=== PATIENT | male | born 1970 | race Caucasian/White ===

== ENCOUNTER 2021-09-13 06:31 | Outpatient (REF) | payer BC, SELFPAY ==
[2021-09-13 12:08] LABS: Alanine Aminotransferase 38 U/L (0-40); Albumin Level 4.2 g/dL (3.5-5.0); Alkaline Phosphatase 62 U/L (39-117); Anion Gap 12 (12-20); Aspartate Amino Transferase 20 U/L (5-37); Bilirubin Total 0.6 mg/dL (0.0-1.0); Blood Urea Nitrogen 19 mg/dL (9-16); Calcium 9.4 mg/dL (8.4-10.2); Carbon Dioxide 27 mmol/L (22-29); Chloride 105 mmol/L (96-108); Cholesterol 196 mg/dL; Estimated Glomerular Filt Rate > 60; Glucose Fasting 96 mg/dL (60-99); HDL Cholesterol 33 mg/dL; LDL Cholesterol Calculated 112 mg/dl; Potassium 4.1 mmol/L (3.3-5.1); Sodium 140 mmol/L (135-145); Total Protein 6.8 g/dL (6.5-8.0); Triglycerides 256 mg/dL
[2021-09-13 12:28] LABS: TSH reflex Free T4 1.43 uIU/mL (0.32-4.0)
== END 2021-09-13 06:32 | disposition home or self-care (01) ==
LOC: HO.HMGCLDS 06:31
PROVIDERS: PCP Family Medicine; Visit Provider Family Medicine
DX: Z00.00 Encounter for general adult medical examination without abnormal findings (principal); Z12.5 Encounter for screening for malignant neoplasm of prostate
CPT/HCPCS: 36415; 80053; 80061; 84153; 84443

== ENCOUNTER 2021-10-19 11:51 | Outpatient (REF) | payer BC, SELFPAY | END 2021-10-19 11:52 | disposition home or self-care (01) | LOC: HO.HOSX 11:51 | PROVIDERS: Visit Provider Orthopaedic Surgery | DX: Z13.89 Encounter for screening for other disorder (principal) ==

== ENCOUNTER → 2021-12-01 09:03 | Outpatient (BNVA) | payer BC, SELFPAY | PROVIDERS: PCP Family Medicine; Referring Provider Family Medicine; Visit Provider Physician Assistant ==

== ENCOUNTER 2022-03-09 08:00 | Day surgery (SDC) | payer BC, SELFPAY ==
[2022-03-03 13:43] VITALS: BMI 34.8
--- NOTE | 2022-03-08 12:02 | P.CONAN_ITS ---
Documented by User: Marquita Tyler NP 03/08/22 12:04 HPI - Anesthesia Eval Consult details Narrative: 51yo M for Upper Endoscopy and Colonoscopy PMFSH Active Problems Active Problems: All Active Problems (Updated 03/03/22 @ 13:36 by Saranya Tanner, RN) Laboratory exam ordered as part of routine general medical examination (Acute) Encounter for screening colonoscopy (Acute) Screening for prostate cancer (Acute) Right hand pain (Acute) Hypertriglyceridemia (Acute) Low HDL (under 40) (Acute) Adult general medical exam (Acute) Obesity (BMI 30.0-34.9) (Acute) Difficulty hearing (Acute) Heartburn (Acute) Diarrhea (Acute) Past Medical History Medical History (Updated 03/03/22 @ 13:36 by Saranya Tanner, RN) Hearing difficulty Heartburn Hypertriglyceridemia Family History Family History Mother HTN (hypertension) Surgical History Surgical History History of appendectomy Social History Social History Housing: House Alcohol intake: current Alcohol intake frequency: a few times a month Patient Tobacco Use Status: Never used Tobacco e-Cigarette/Vaping Use: Never Used Second Hand Smoke Exposure: No Use of substances other than those prescribed or required for medical reasons: No Are you DNR?: No Advance Directives: No Advance Directives Information Provided: Yes Recently lost weight without trying: No Nutrition Risks: No Nutritional Risk service: No Current occupational status: employed 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 Cognitive needs: No Hearing needs: No Vision needs: Yes (reading glasses) Meds Allergies Allergy/AdvReac Type Severity Reaction Status Date / Time No Known Allergies Allergy Verified 12/01/21 09:10 Exam Exam Date and Time: March 08, 2022 1202 Height,Weight and Vital Signs: Height 6 ft Weight 116.573 kg Assessment and Plan Assessment Anesthesia Assessment: Chart Reviewed Documented by User: Annamarie Mckenzie MD 03/09/22 08:27 [facility] Past Medical History Medical History (Updated 03/03/22 @ 13:36 by Saranya Tanner RN) Hearing difficulty Heartburn Hypertriglyceridemia Family History Family History Mother HTN (hypertension) Family history of problems with anesthesia: No Surgical History Surgical History History of appendectomy History of Problems with Anesthesia: No Social History Social History Housing: House Alcohol intake: current Alcohol intake frequency: a few times a month Patient Tobacco Use Status: Never used Tobacco e-Cigarette/Vaping Use: Never Used Second Hand Smoke Exposure: No Use of substances other than those prescribed or required for medical reasons: No Are you DNR?: No Advance Directives: No Advance Directives Information Provided: Yes Recently lost weight without trying: No Nutrition Risks: No Nutritional Risk service: No Current occupational status: employed 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 Cognitive needs: No Hearing needs: No Vision needs: Yes (reading glasses) Meds Allergies Allergy/AdvReac Type Severity Reaction Status Date / Time No Known Allergies Allergy Verified 12/01/21 09:10 Exam Height,Weight and Vital Signs: Height 6 ft Weight 116.573 kg Vital Signs Temp Pulse Resp BP Pulse Ox O2 Del Method 03/09/22 08:11 97.1 F 64 16 132/88 94 Room Air Airway Mallampati Class: III TM Dist: >3cm Neck ROM: Full Loose/Missing/Broken Teeth: No Heart: RRR Lungs: CTAB Assessment and Plan Assessment Anesthesia Assessment: Anesthesia Plan Discussed Final Anesthetic Review Family History of Problems with Anesthesia: No History of Problems with Anesthesia: No NPO: Yes ASA Class: II Final Preanesthetic Review: No Changes in Pt Med Stat, Meds/Allgs Chart Reviewed, Consent Obtained/Reviewed and Anes Risks/Benef Reviewed Patient Risk: Low Procedure Risk: Low Assessment/Block/Sedation in SS: Assess/Block/Sedation-SS Anesthetic Plan Anesthetic Plan: MAC: Disposition: Standard PACU
[2022-03-09 08:05] VITALS: BMI 33.9
[2022-03-09 08:11] VITALS: BP 132/88; PULSE 64; RESP 16; TEMP 36.2; O2SAT 94
[2022-03-09] MEDS: Lactated Ringers 1,000 ML 100 ML IVCONT (08:23)
--- NOTE | 2022-03-09 08:35 | MHC.SHP ---
Pre-Procedural Eval Section A Date of Service: 03/09/22 Section B Chief Complaint: screening,heartburn Relevant Family History (Specify if Yes): No Relevant Social History: None Present Medications: see Short Stay Collaborative assessment Medical History: Significant History (Hearing difficulty Heartburn Hypertriglyceridemia) History of Previous Operations: Relevant previous surgery/procedure and date(s) (appendectomy) Allergies: Allergies Allergy/AdvReac Type Severity Reaction Status Date / Time No Known Allergies Allergy Verified 12/01/21 09:10 Review of Systems Sugical H&P ROS: Negative: Constitution, Cardiovascular, Respiratory, Neurological, Psychiatric, Hem-Onc, Allergic/Immunologic, Gastrointestinal, Genitourinary, Musculoskeletal, Integumentary, Endocrine and Eyes/Ears/Nose/Throat Exam Surgical H&P Exam: Normal: HEENT, Normal: Heart, Normal: Lungs, Normal: Extremities, Normal: Abdomen, Normal: Skin and Normal: Neurological Plan Diagnosis/Plan: Unchanged I have reviewed the history and physical and performed a pertinent physical examination on my patient. No changes have occurred unless specified.
--- NOTE | 2022-03-09 08:37 | P.BOP_ITS ---
Brief Operative Note Date of Service: 03/09/22 Pre-op diagnosis: GERD< screening Post-op diagnosis: same Procedure: see op note Surgeon: Junior Hair MD Anesthesia: MAC Was an Oil Processing Technician used for this Procedure?: No Estimated blood loss (mL): 0 Condition: stable Disposition: PACU
--- NOTE | 2022-03-09 08:37 | P.OP_ITS ---
Operative Note Operative Note Date of Service: 03/09/22 Narrative: Operative Information Procedure Description: EGD, Colonoscopy Indication: GERD, screening Anesthesia: MAC FLEXIBLE TRANSORAL UPPER GASTROINTESTINAL ENDOSCOPY AND COLONOSCOPY PROCEDURE NOTE UPPER ENDOSCOPY Consent: Indications for the procedure and potential complications of bleeding, perforation, reaction to medications and missed diagnosis were discussed with the patient and informed consent was obtained. Instrument: Olympus GIF H 190 J mid size upper endoscope Monitoring: Vital signs and clinical assessment, continuous EKG monitoring, Pulse oximetry, Carbon Dioxide monitoring and blood pressure monitoring were done throughout the procedure. Procedure: The patient was placed in the left lateral decubitis position and pre-procedure medications were administered and a bite block was placed. The endoscope was inserted into the mouth and advanced under direct vision to the third part of duodenum. A careful inspection was made as the upper endoscope was withdrawn including a retroflexed examination of the proximal stomach; Findings and interventions are described below. Findings: Larynx:normal Esophagus: GE junction at 43 cm, diaphragm hiatus at 45 cm, consistent with 2 cm sliding hiatal hernia, edema, swelling and redness at GEJ with one erosive streak consistent with LA grade B esophagitis, bx taken Stomach: PAtchy erythema with bile acid refluxate noted. Biopsies were obtained. Grade 2 flap valve on retroflexed examination of the cardia. Duodenum: Normal bulb and descending duodenum, bx taken Intervention: Biopsies as noted above COLONOSCOPY Instrument: Olympus variable stiffness pediatric scope 190L Colonoscopy Monitoring: Vital signs and clinical assessment, continuous EKG monitoring, Pulse oximetry, Carbon Dioxide monitoring and blood pressure monitoring were done throughout the procedure. Colon withdrawal time was 12 minutes. Procedure: The patient was placed in the left lateral decubitis position and pre-procedure medications were administered. After a digital rectal examination of the ano-rectum, the video colonoscope was inserted into the rectum and advanced through the colon to the cecum/TI. The colonoscope was slowly withdrawn in a retrograde panoramic fashion and the colon mucosa was carefully examined including a retroflexed view of the rectum. Findings and interventions are described below. Procedure Difficulty:moderate due to looping Findings: Terminal Ileum-few erosions and erythema noted, bx taken Cecum:normal, bx taken Ascending Colon: 10 mm sessile polyp removed with cold snare Transverse Colon -normal Descending Colon:normal Sigmoid Colon: moderate severe diverticulosis Rectum: Retroflexion with small internal hemorrhoids, grade I Anorectum - normal Colon preparation: Maurice Bowel Preparation Scale Right colon; 2 Transverse colon: 2 Left colon; 2 (0 = Unprepared colon segment with mucosa not seen due to solid stool that cannot be cleared. 1 = Portion of mucosa of the colon segment seen, but other areas of the colon segment not well seen due to staining, residual stool and/or opaque liquid. 2 = Minor amount of residual staining, small fragments of stool and/or opaque liquid, but mucosa of colon segment seen well. 3 = Entire mucosa of colon segment seen well with no residual staining, small fragments of stool or opaque liquid) Impression and Post Procedure Diagnosis: Endoscopy Findings: esophagitis gastritis bile acid gastric reflux Colonoscopy Findings: polyp internal hemorrhoids diverticular disease Plan: Await Pathology results Repeat Colonoscopy in 5 years due to adenomatous appearing polyp or earlier if clinically indicated High fiber diet leaflet avoid straining at stool, epsom salts and sitz bath, anusol supps or cream check nsaid use history, if GERD sx suboptimally controlled, consider PPI if not taking may benefit from bile acid binder if has persistent sx of reflux Above findings were reviewed with the patient and relevant handouts were provided if indicated.
[2022-03-09 09:16] VITALS: BP 126/82; PULSE 76; RESP 16; TEMP 36.3; O2SAT 96
[2022-03-09 09:21] VITALS: BP 121/83; PULSE 73; RESP 16; O2SAT 95
[2022-03-09 09:31] VITALS: BP 124/87; PULSE 74; RESP 16; TEMP 36.6; O2SAT 97
[2022-03-09 09:46] VITALS: BP 130/85; PULSE 65; RESP 16; O2SAT 97
== END 2022-03-09 10:30 | disposition home or self-care (01) ==
PROVIDERS: PCP Family Medicine; Visit Provider Internal Medicine Gastroenterology
PROC: (CPT 45385; principal; 2022-03-09 09:20)
DX: Z12.11 Encounter for screening for malignant neoplasm of colon (principal); D12.0 Benign neoplasm of cecum; K57.30 Diverticulosis of large intestine without perforation or abscess without bleeding; K64.0 First degree hemorrhoids; K52.89 Other specified noninfective gastroenteritis and colitis; K21.9 Gastro-esophageal reflux disease without esophagitis; K20.80 Other esophagitis without bleeding; K29.50 Unspecified chronic gastritis without bleeding; K44.9 Diaphragmatic hernia without obstruction or gangrene; H91.90 Unspecified hearing loss, unspecified ear; E78.1 Pure hyperglyceridemia; Z79.899 Other long term (current) drug therapy
CPT/HCPCS: 45385; 45380; 43239; 88305; 88342; J2250; J3010

== ENCOUNTER 2022-07-13 09:54 | Outpatient (REF) | payer BC, SELFPAY | END 2022-07-13 09:55 | disposition home or self-care (01) | LOC: HO.LAB 09:54 | PROVIDERS: Visit Provider Nurse Practitioner Family | DX: Z13.89 Encounter for screening for other disorder (principal) ==

== ENCOUNTER 2022-07-13 10:15 | Outpatient (REF) | payer BC, SELFPAY ==
[2022-07-13 11:34] LABS: MANUAL DIFF FLAG NO
[2022-07-13 11:56] LABS: Basophils Percent Auto 0.6 % (0-2); Eosinophils Absolute Auto 0.1 X10*3/uL (0.0-0.4); Eosinophils Percent Auto 0.8 % (0-4); Hematocrit 46.1 % (42.0-52.0); Hemoglobin 16.4 g/dl (14.0-18.0); Imm Gran Abs Auto 0.02 X10*3/uL (0.00-0.03); Imm Gran Pct Auto 0.3 % (0.0-0.4); Lymphocytes Absolute Auto 1.2 X10*3/uL (1.2-4.9); Lymphocytes Percent Auto 17.9 % (20-40); Mean Corpuscular HGB Conc 35.6 g/dl (31.0-36.0); Mean Corpuscular Volume 84.3 fL (80.0-98.0); Mean Platelet Volume 10.5 fL (9.4-12.4); Monocytes Absolute Auto 0.8 X10*3/uL (0.1-1.2); Monocytes Percent Auto 11.9 % (2-11); Neutrophils Absolute Auto 4.5 x10*3/uL (2.0-8.3); Neutrophils Percent Auto 68.5 % (45-73); Platelet Count 211 X10*3/uL (160-400); Red Blood Count 5.47 X10*6/uL (4.60-5.80); Red Cell Distribution Width 12.2 % (11.0-16.0); White Blood Count 6.6 X10*3/uL (4.8-10.8)
[2022-07-13 12:25] LABS: Appearance Urine Cloudy; Color Urine Yellow; Glucose Urine UA Negative (Negative); Leukocyte Esterase Urine Negative (Negative); Nitrite Urine Negative (Negative); PH 5.5 (5.0-9.0); Urine Blood Negative (Negative); Urine Ketones Negative (Negative); Urine Protein Negative (Neg-Trace)
[2022-07-13 12:36] LABS: Alanine Aminotransferase 38 U/L (0-40); Albumin Level 4.3 g/dL (3.5-5.0); Alkaline Phosphatase 65 U/L (39-117); Anion Gap 15 (12-20); Aspartate Amino Transferase 24 U/L (5-37); Bilirubin Total 0.7 mg/dL (0.0-1.0); Blood Urea Nitrogen 13 mg/dL (9-16); Calcium 9.3 mg/dL (8.4-10.2); Carbon Dioxide 25 mmol/L (22-29); Chloride 102 mmol/L (96-108); Estimated Glomerular Filt Rate > 60; Glucose Random 96 mg/dL (60-115); Sodium 138 mmol/L (135-145); Total Protein 6.8 g/dL (6.5-8.0)
[2022-07-13 12:39] LABS: Erythrocyte Sedimentation Rate 12 MM/HR (0-15)
[2022-07-13 12:46] LABS: Influenza A PCR NEGATIVE (Negative); Influenza B PCR NEGATIVE (Negative); Resp Syncy Virus RNA Qual PCR NEGATIVE (Negative); SARS COV2 PCR INHOUSE NEGATIVE (Negative)
[2022-07-13 12:59] LABS: TSH reflex Free T4 0.95 uIU/mL (0.32-4.0)
[2022-07-15 09:46] LABS: Lyme Abs Screen <0.90 index
[2022-07-15 11:31] LABS: CRP High Sensitivity >10.0 mg/L
== END 2022-07-13 10:16 | disposition home or self-care (01) ==
LOC: HO.WFDLDS 10:15
PROVIDERS: Nurse Practitioner Family; Visit Provider Family Medicine
DX: Z00.00 Encounter for general adult medical examination without abnormal findings (principal); R68.83 Chills (without fever); R52 Pain, unspecified
CPT/HCPCS: 0241U; 36415; 80053; 81003; 84443; 85025; 85652; 86141; 86617; 86618

== ENCOUNTER 2022-11-09 06:10 | Outpatient (REF) | payer BC, SELFPAY ==
[2022-11-09 11:30] LABS: Appearance Urine Clear; Color Urine Yellow; Glucose Urine UA Negative (Negative); Leukocyte Esterase Urine Negative (Negative); Nitrite Urine Negative (Negative); PH 5.5 (5.0-9.0); Specific Gravity - Urine 1.015 (1.005-1.025); Urine Blood Negative (Negative); Urine Ketones Negative (Negative); Urine Protein Negative (Neg-Trace)
[2022-11-09 12:13] LABS: Creatinine Urine 95.67 mg/dL; Microalbumin Urine < 5.0 mg/L
[2022-11-09 12:20] LABS: Alanine Aminotransferase 34 U/L (0-40); Albumin Level 4.3 g/dL (3.5-5.0); Alkaline Phosphatase 58 U/L (39-117); Anion Gap 11 (12-20); Aspartate Amino Transferase 19 U/L (5-37); Bilirubin Total 0.8 mg/dL (0.0-1.0); Blood Urea Nitrogen 21 mg/dL (9-16); Calcium 9.3 mg/dL (8.4-10.2); Carbon Dioxide 27 mmol/L (22-29); Chloride 106 mmol/L (96-108); Cholesterol 195 mg/dL; Estimated Glomerular Filt Rate > 60; Glucose Fasting 104 mg/dL (60-99); HDL Cholesterol 36 mg/dL; LDL Cholesterol Calculated 114 mg/dl; Potassium 4.1 mmol/L (3.3-5.1); Sodium 140 mmol/L (135-145); Total Protein 6.5 g/dL (6.5-8.0); Triglycerides 226 mg/dL
[2022-11-09 12:35] LABS: Prostate Specific Antigen Scr 1.47 ng/mL (<0.05-4.0)
== END 2022-11-09 06:11 | disposition home or self-care (01) ==
LOC: HO.HMGCLDS 06:10
PROVIDERS: Visit Provider Family Medicine
DX: Z00.00 Encounter for general adult medical examination without abnormal findings (principal); Z12.5 Encounter for screening for malignant neoplasm of prostate; I10 Essential (primary) hypertension
CPT/HCPCS: 36415; 80053; 80061; 81003; 82043; 84153; 84443

== ENCOUNTER 2022-12-13 14:26 | Outpatient (REF) | payer BC, SELFPAY ==
--- NOTE | ~2022-12-13 | XR_ITS ---
EXAMINATION: XR HAND, RIGHT CLINICAL INFORMATION: Pain COMPARISON: None available. TECHNIQUE: PA, lateral, and oblique views of the right hand. FINDINGS: Mild degenerative osteoarthritic changes involving the interphalangeal joints especially the DIP of the second and third digit. No evidence of bone erosions. Bone alignments are satisfactory. Soft tissues unremarkable. No radiodense foreign body. XR/XR hand RT min 3V IMPRESSION: * Mild degenerative osteoarthritis. * No radiographic evidence of bone erosions.
== END 2022-12-13 14:27 | disposition home or self-care (01) ==
LOC: HO.HOSX 14:26
PROVIDERS: Visit Provider Physician Assistant
DX: M19.041 Primary osteoarthritis, right hand (principal)
CPT/HCPCS: 73130

== ENCOUNTER → 2023-01-25 14:52 | Outpatient (BNVA) | payer BC, SELFPAY | PROVIDERS: PCP Family Medicine; Visit Provider Orthopaedic Surgery ==

== ENCOUNTER 2023-02-08 13:21 | Outpatient (REF) | payer BC, SELFPAY | END 2023-02-08 13:22 | disposition home or self-care (01) | LOC: HO.SH 13:21 | PROVIDERS: Visit Provider Family Medicine | DX: Z01.118 Encounter for examination of ears and hearing with other abnormal findings (principal); H93.13 Tinnitus, bilateral | CPT/HCPCS: 92557; 92567 ==

== ENCOUNTER 2023-02-24 14:30 | Outpatient (RCR) | payer BC, SELFPAY ==
--- NOTE | 2023-01-11 15:27 | MHC.OT.EP ---
[address] [phone] Occupational Therapy Plan of Care Patient Name: Yvan Kohler Date of Evaluation: 01/11/23 Diagnosis: OA OF FINGER OF R HAND Pain Location: PAINFREE AT REST 10/10 SHARP PAIN WHEN BUMPED OR TIGHT FIST Pain Score: 0-10/10 Pain Scale Used: Numeric (0 - 10) Aggravating Factors: BUMPING R MF Alleviating Factors: REST, SHAKE OUT HANDS Assessment: MR KOHLER STATES HE INJURED HIS R MF ABOUT THREE YEARS AGO WHEN HE BUMPED IT ON SHEET METAL. HE REPORTS ONGOING DISCOMFORT SINCE INJURY, MOSTLY WHEN BUMPED OR MAKES A TIGHT FIST. DENIES DIFFICULTIES WITH ADLs OR IADLs. XRAY REVEALS MILD OA IN D2/D3 OF DIP>PIPj. ONGOING SKILLED OT IS WARRANTED TO ADDRESS PAIN, ROM, Pt EDUCATION, JT PROTECTION, AND STRENGTH. Frequency and Duration: The patient will be seen 1X/WEEK FOR 4 WEEKS Short Term Goals: SEE BELOW Penitentiary Goals: IND HEP IND JT PROTECTION AND ACTIVITY MODIFICATION IND USE OF HEAT MODALITIES FOR PAIN RELIEF TIP TO DPC <0.5 CM Treatment Plan: Therapeutic Exercise Therapeutic Activity Home Exercise Program Splinting Neuro Re-ed Patient Education Desensitization/Sensory Re-ed Edema Control ADL Training Ultrasound NMES Iontophoresis Paraffin Fluidotherapy MHP Cold Packs Joint Mobilization Soft Tissue Mobilization Kinesiotaping Other (see comments) Electronically Signed By: GIORGI ORNELAS OTR/L Please Sign and return to therapist. Thank you once again for your referral.
--- NOTE | 2023-02-24 15:02 | MHC.OT.DC ---
[address] [phone] F: [phone] Occupational Therapy Discharge Note Patient Name: Yvan Kohler Provider: Chitra Pelaez Diagnosis: OA OF FINGER OF R HAND Date of Evaluation: 01/11/23 Date of Discharge: 02/24/23 Treatments to Date: 6 Discharge Status: Achieved Goals Improved Function Independent with HEP Discharge Summary: MR KOHLER HAS MADE GOOD GAINS DURING HIS OT TREATMENTS. HE REPORTS INC EASE WITH FULL FIST AFTER THER EX. PAIN PRIMARILY WITH BUMPING MCP JT. Pt DEMO GOOD UNDERSTANDING OF HEP. USING VOLTAREN GEL AND PRACTICING JT PROTECTION STRATEGIES. MILD EDEMA REMAINS AT MCPj OF MF. WILL BE D/C'D TO HOME BASED PROGRAM AT THIS TIME. Electronically Signed By: SOL VELEZ/Yanira Reviewed/agree with student documentation: N/A Therapist: Please Sign and return to therapist, thank you for your referral.
== END 2023-02-24 15:00 | disposition home or self-care (01) ==
LOC: HO.OT 14:30
PROVIDERS: PCP Family Medicine; Visit Provider Physician Assistant
DX: M19.041 Primary osteoarthritis, right hand (principal); M79.644 Pain in right finger(s)
CPT/HCPCS: 97035; 97110; 97165

== ENCOUNTER 2023-05-12 14:32 | Outpatient (AMB) | payer BC, SELFPAY ==
--- NOTE | 2023-05-12 14:35 | MHC.PC.OV ---
Vital Signs 05/12/23 14:37 Height 6 ft Weight 260 lb BMI 35.3 BP 126/82 Blood Pressure Location Rt brachial Position Sitting Respiration 12 Pulse 78 Pulse Source Pulse Oximeter Temp 97.6 F Temp Source Temporal Artery Scan Pulse Oximetry (%) 98 Oxygen Delivery Method Room Air Intake Visit Reasons: f/u low HDL and chronic conditions Public Address System Installer Required: No Accompanied by: Self / Same As Patient Allergies No Known Allergies Allergy (Verified 05/12/23 14:41) Tobacco use date assessed: 11/10/22 Dental Screening Dental Screen Date: 05/12/23 Did you have a dental visit in the last 12 months?: Yes Did you have a dental problem in the last 6 months where you did not have access to dental care?: No Was dental information given to patient?: Patient has dentist HPI f/u low HDL and chronic conditions HPI Details 52 y/o male presents to f/u lipids, elevated fasting blood sugars and chronic conditions. No recent labs to review. Last A1c 11/10/22 5.2%. A1c today 05/12/23 is 5.4%. Pt has complaints of an abscess x several months. He also complaints of thickened nails. Pt has complaints of low libido. 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 Juan Patrick, Patti Montoya, Moo Escamilla and colleagues, with an educational jason from [employer]. Review of Systems Const Reports fatigue, Denies headache(s) and Denies weakness ENT Denies dizziness and Denies headache(s) Card Denies dyspnea Resp Denies cough, Denies dyspnea, Denies wheezing and Denies other (shortness of breath) Musc Denies numbness and Denies tingling Neuro Denies dizziness, Denies headache(s), Denies numbness, Denies tingling and Denies weakness Psych Denies anxiety and Denies depression Endo Reports fatigue Aller/Immun Denies wheezing Physical exam (Primary Care) Vital Signs: Last Vital Signs Temp 97.6 F 05/12/23 14:37 Pulse 78 05/12/23 14:37 Resp 12 05/12/23 14:37 BP 126/82 05/12/23 14:37 Pulse Ox 98 05/12/23 14:37 Oxygen Delivery Method Room Air 05/12/23 14:37 BMI result Body Mass Index 35.3 Tobacco/Smoking Status: Tobacco use Status Tobacco use date assessed 11/10/22 05/12/23 14:36 Patient Tobacco Use Status Never used Tobacco 05/12/23 14:36 e-Cigarette/Vaping Use Never Used 05/12/23 14:36 Thrive Assessment: Date of Thrive Assessment Date Thrive assessed 11/02/21 05/12/23 14:36 Const General: well developed; No acute distress Nutritional Appearance: well nourished Orientation/consciousness: patient oriented x3 HENMT Head: Yes normocephalic and Yes atraumatic Eyes General: appearance normal, both eyes and all related structures Pupils: Equal, round and reactive pupils present EOM: EOMs intact bilaterally Resp Effort & Inspection: normal respiratory effort Neuro General: patient oriented x3 and gait normal Cranial nerves: Yes Equal, round and reactive pupils present Extrem Other: L great nail has an abnormality to it Psych Affect: normal affect Assessment and Plan Assessment & Plan (1) Elevated fasting glucose: Code(s): R73.01 - Impaired fasting glucose Plan: A1c has risen from 5.2% to 5.4% Weight has increased slightly as well Encouraged diet lower in sugars and starches (2) Low HDL (under 40): Code(s): E78.6 - Lipoprotein deficiency Plan: Patient has not had his lipids drawn yet and will do so this week (3) Hypertriglyceridemia: Code(s): E78.1 - Pure hyperglyceridemia Plan: As above he will get his lipids drawn this week (4) Skin abscess: Code(s): L02.91 - Cutaneous abscess, unspecified Plan: Tiny abscess at the top of his left ear which is likely secondary to a blocked sebaceous cyst He can use warm compresses and watch for any worsening redness or pain Will likely drain on its own He can call or return to the office if worsening or not improving (5) Low libido: Code(s): R68.82 - Decreased libido Plan: Check T levels (6) Nail deformity: Code(s): L60.8 - Other nail disorders Plan: Nail deformity at the top of left great toe This appears to be some trauma and likely from his steel toe boots. No evidence of fungal infection or other disease. Try thicker socks Orders: Orders Comprehensive [place]. Panel Fast Today E78.1 - Pure hyperglyceridemia, Z00.00 - Encounter for general adult medical examination without abnormal findings Lipid Panel Today E78.1 - Pure hyperglyceridemia, Z00.00 - Encounter for general adult medical examination without abnormal findings Testosterone, Free/Total Today R68.82 - Decreased libido Coding Level of Care Code Est Pt Level 4 (50780) Diagnoses Elevated fasting glucose R73.01 Low HDL (under 40) E78.6 Hypertriglyceridemia E78.1 Skin abscess L02.91 Low libido R68.82 Nail deformity L60.8
[2023-05-12 14:37] VITALS: BP 126/82; PULSE 78; RESP 12; TEMP 36.4; O2SAT 98; BMI 35.3
== END 2023-05-12 15:22 | disposition home or self-care (01) ==
PROVIDERS: PCP Family Medicine; Visit Provider Family Medicine
DX: R73.01 Impaired fasting glucose (principal); E78.6 Lipoprotein deficiency; E78.1 Pure hyperglyceridemia; L02.91 Cutaneous abscess, unspecified; R68.82 Decreased libido; L60.8 Other nail disorders
CPT/HCPCS: 99214

== ENCOUNTER 2023-05-19 06:05 | Outpatient (REF) | payer BC, SELFPAY ==
[2023-05-19 12:12] LABS: Alanine Aminotransferase 32 U/L (0-40); Albumin Level 4.1 g/dL (3.5-5.0); Alkaline Phosphatase 52 U/L (39-117); Anion Gap 11 (12-20); Aspartate Amino Transferase 20 U/L (5-37); Bilirubin Total 0.5 mg/dL (0.0-1.0); Blood Urea Nitrogen 17 mg/dL (9-16); Calcium 9.5 mg/dL (8.4-10.2); Carbon Dioxide 26 mmol/L (22-29); Chloride 107 mmol/L (96-108); Cholesterol 170 mg/dL (<200); Estimated Glomerular Filt Rate > 60; Glucose Fasting 99 mg/dL (60-99); HDL Cholesterol 42 mg/dL (>40); LDL Cholesterol Calculated 101 mg/dL (<100); Sodium 140 mmol/L (135-145); Total Protein 6.8 g/dL (6.5-8.0); Triglycerides 136 mg/dL (<150)
[2023-05-19 12:43] LABS: Estimated Average Glucose 97 mg/dL
[2023-05-25 14:09] LABS: Testosterone, Total 365 ng/dL (250-1100)
== END 2023-05-19 06:06 | disposition home or self-care (01) ==
LOC: HO.HMGCLDS 06:05
PROVIDERS: PCP Family Medicine; Visit Provider Family Medicine
DX: Z00.00 Encounter for general adult medical examination without abnormal findings (principal); R73.01 Impaired fasting glucose; R68.82 Decreased libido; E78.1 Pure hyperglyceridemia
CPT/HCPCS: 36415; 80053; 80061; 83036; 84402; 84403

== ENCOUNTER 2023-08-11 14:23 | Outpatient (AMB) | payer BC, SELFPAY ==
[2023-08-11 14:38] VITALS: BP 126/70; PULSE 68; RESP 13; TEMP 36.3; O2SAT 98; BMI 34.7
--- NOTE | 2023-08-11 14:38 | MHC.PC.OV ---
Vital Signs 08/11/23 14:38 Height 6 ft Weight 256 lb 2 oz BMI 34.7 BP 126/70 Blood Pressure Location Rt brachial Position Sitting Respiration 13 Pulse 68 Pulse Source Pulse Oximeter Temp 97.4 F Temp Source Temporal Artery Scan Pulse Oximetry (%) 98 Oxygen Delivery Method Room Air Intake Visit Reasons: f/u HLD, elev fasting blood sugars, chronic condit Welder Helper Required: No Accompanied by: Self / Same As Patient Allergies No Known Allergies Allergy (Verified 08/11/23 14:42) Tobacco use date assessed: 11/10/22 Dental Screening Dental Screen Date: 08/11/23 Did you have a dental visit in the last 12 months?: Yes Did you have a dental problem in the last 6 months where you did not have access to dental care?: No Was dental information given to patient?: Patient has dentist HPI f/u HLD, elev fasting blood sugars, chronic condit HPI Details 53 y/o male presents to f/u HLD, elev. fasting blood sugars and chronic conditions. Labs were drawn 05/19/23. Reviewed labs with pt. Triglycerides 136. TC 170. LDL 101. HDL 42. Testosterone levels are fine. A1c 5.0%. 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 Jan, Moo Escamilla and colleagues, with an educational jason from [employer]. Review of Systems Const Denies chills, Denies fatigue, Denies fever(s), Denies headache(s) and Denies weakness ENT Denies dizziness and Denies headache(s) Card Denies dyspnea Resp Denies cough, Denies dyspnea, Denies wheezing and Denies other (shortness of breath) Musc Denies numbness and Denies tingling Neuro Denies dizziness, Denies headache(s), Denies numbness, Denies tingling and Denies weakness Psych Denies anxiety and Denies depression Endo Denies fatigue Aller/Immun Denies wheezing Physical exam (Primary Care) Vital Signs: Last Vital Signs Temp 97.4 F 08/11/23 14:38 Pulse 68 08/11/23 14:38 Resp 13 08/11/23 14:38 BP 126/70 08/11/23 14:38 Pulse Ox 98 08/11/23 14:38 Oxygen Delivery Method Room Air 08/11/23 14:38 BMI result Body Mass Index 34.7 Tobacco/Smoking Status: Tobacco use Status Tobacco use date assessed 11/10/22 08/11/23 14:43 Patient Tobacco Use Status Never used Tobacco 08/11/23 14:43 e-Cigarette/Vaping Use Never Used 08/11/23 14:43 Thrive Assessment: Date of Thrive Assessment Date Thrive assessed 11/02/21 08/11/23 14:43 Const General: well developed; No acute distress Nutritional Appearance: well nourished Orientation/consciousness: patient oriented x3 [facility] Head: Yes normocephalic and Yes atraumatic Eyes General: appearance normal, both eyes and all related structures Pupils: Equal, round and reactive pupils present EOM: EOMs intact bilaterally Resp Effort & Inspection: normal respiratory effort Auscultation: clear to auscultation bilaterally Cardio Rate: regular rate Rhythm: regular rhythm Heart sounds: S1 normal heart sound present, S2 normal heart sound present, no gallops, no murmurs and no rubs Neuro General: patient oriented x3 and gait normal Cranial nerves: Yes Equal, round and reactive pupils present Psych Affect: normal affect Assessment and Plan Assessment & Plan (1) Hypertriglyceridemia: Code(s): E78.1 - Pure hyperglyceridemia Plan: Lipids?now?controlled Continue?lifestyle?changes (2) Low libido: Code(s): R68.82 - Decreased libido Plan: Testosterone?within?normal?limits (3) Elevated fasting glucose: Code(s): R73.01 - Impaired fasting glucose Plan: Blood?sugar?in?normal?limits Orders: Orders Lipid Panel Today Z00.00 - Encounter for general adult medical examination without abnormal findings Microalbumin, Random (w Creat) Today I10 - Essential (primary) hypertension Prostate Specific Antigen Scr Today Z12.5 - Encounter for screening for malignant neoplasm of prostate TSH reflex Free T4 Today Z00.00 - Encounter for general adult medical examination without abnormal findings Comprehensive [place]. Panel Fast Today Z00.00 - Encounter for general adult medical examination without abnormal findings UA and rflx microscopic Today Z00.00 - Encounter for general adult medical examination without abnormal findings Coding Level of Care Code Est Pt Level 4 (39368) Diagnoses Hypertriglyceridemia E78.1 Low libido R68.82 Elevated fasting glucose R73.01
== END 2023-08-11 15:15 | disposition home or self-care (01) ==
PROVIDERS: PCP Family Medicine; Visit Provider Family Medicine
DX: E78.1 Pure hyperglyceridemia (principal); R68.82 Decreased libido; R73.01 Impaired fasting glucose
CPT/HCPCS: 99214

== ENCOUNTER 2023-09-26 12:45 | Outpatient (AMB) | payer BC, SELFPAY ==
[2023-09-26 12:52] VITALS: BP 124/60; PULSE 78; RESP 13; TEMP 36.4; O2SAT 98; BMI 34.4
--- NOTE | 2023-09-26 12:52 | MHC.PC.OV ---
Vital Signs 09/26/23 12:52 Height 6 ft Weight 253 lb 6 oz BMI 34.4 BP 124/60 Blood Pressure Location Rt brachial Position Sitting Respiration 13 Pulse 78 Pulse Source Pulse Oximeter Temp 97.5 F Temp Source Temporal Artery Scan Pulse Oximetry (%) 98 Oxygen Delivery Method Room Air Intake Visit Reasons: [facility] 09/15/23 Gallstone Intake Note: Patient states that he is concerned about what his diet is abraham be like after gallbladder is removed. Inletter Required: No Accompanied by: Self / Same As Patient Allergies No Known Allergies Allergy (Verified 09/26/23 13:08) Medication List - Last Reconciled 09/26/23 by Mati Hawthorne CNP omeprazole 40 mg PO DAILY 90 days Tobacco use date assessed: 09/26/23 Dental Screening Dental Screen Date: 09/26/23 Did you have a dental visit in the last 12 months?: Yes Did you have a dental problem in the last 6 months where you did not have access to dental care?: No Was dental information given to patient?: Patient has dentist HPI HPI Comments History of Present Illness Details 53-year-old male presents for a follow-up visit He was evaluated at [facility] on 09/15/2023 for epigastric pain. Labs remarkable for leukocytosis of 19.1 and mildly elevated lactate of 2.5. Ultrasound revealed cholelithiasis. He received ceftriaxone and Flagyl. He was discharged with recommendation for elective cholecystectomy He reports right upper quadrant pain whenever he consumes peanuts, greasy or fried foods He notes that he has surgical consultation regarding cholecystectomy scheduled on 10/18/2023 with [facility] He denies acute symptoms at this time [facility] Medical History Hypertriglyceridemia Hearing difficulty Heartburn Surgical History History of esophagogastroduodenoscopy (EGD) Hx of colonoscopy History of appendectomy Family History Mother HTN (hypertension) Social History Housing: House Alcohol intake: current Alcohol intake frequency: a few times a month Patient Tobacco Use Status: Never used Tobacco e-Cigarette/Vaping Use: Never Used Second Hand Smoke Exposure: No service: No Current occupational status: employed 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 Juan Patrick, Patti Montoya, Moo Escamilla and colleagues, with an educational jason from [employer]. Review of Systems Const Details: Const Denies chills, Denies fatigue, Denies fever(s), Denies headache(s) and Denies weakness ENT Denies dizziness and Denies headache(s) Card Denies chest pain, Denies lightheadedness, Denies dyspnea and Denies other (Palpitations) Resp Denies cough, Denies dyspnea, Denies wheezing and Denies other ( shortness of breath) GI Denies abdominal pain, Denies melena, Denies hematochezia, Denies change in bowel habits, Denies dyspepsia and Denies nausea Denies hematuria and Denies dysuria Musc Denies abnormal gait, Denies myalgias, Denies arthralgias, Denies numbness and Denies tingling Skin/Breast Denies rash, Denies unusual bruising and Denies wounds Neuro Denies abnormal gait, Denies dizziness, Denies headache(s), Denies memory loss, Denies numbness, Denies Sensory deficit (Neuro), Denies tingling and Denies weakness Psych Denies anxiety, Denies depression, Denies memory loss Endo Denies cold intolerance, Denies fatigue, Denies heat intolerance, Denies polydipsia and Denies polyuria Aller/Immun Denies wheezing Physical exam (Primary Care) Vital Signs: Last Vital Signs Temp 97.5 F 09/26/23 12:52 Pulse 78 09/26/23 12:52 Resp 13 09/26/23 12:52 BP 124/60 09/26/23 12:52 Pulse Ox 98 09/26/23 12:52 Oxygen Delivery Method Room Air 09/26/23 12:52 BMI result Body Mass Index 34.4 Tobacco/Smoking Status: Tobacco use Status Tobacco use date assessed 09/26/23 09/26/23 13:01 Patient Tobacco Use Status Never used Tobacco 09/26/23 12:59 e-Cigarette/Vaping Use Never Used 09/26/23 12:59 Thrive Assessment: Date of Thrive Assessment Date Thrive assessed 11/02/21 09/26/23 12:59 Const Other: General: no acute distress and well developed Nutritional Appearance: well nourished Orientation/consciousness: patient oriented x3 HENMT Head: Yes normocephalic and Yes atraumatic Eyes General: appearance normal, both eyes and all related structures Pupils: Equal, round and reactive pupils present EOM: EOMs intact bilaterally Resp Effort & Inspection: normal respiratory effort Auscultation: clear to auscultation bilaterally Cardio Rate: regular rate Rhythm: regular rhythm Heart sounds: S1 normal heart sound present, S2 normal heart sound present, no gallops, no murmurs and no rubs GI Palpation (GI): No Abdominal aortic bruit present, Soft to palpation, nontender, No hepatosplenomegaly present and No Rebound tenderness present Auscultation: normal bowel sounds General: Yes no CVA tenderness Back/Spine/Pelvis Back: no CVA tenderness Cervical Spine: cervical ROM normal and No Cervical spine tenderness Thoracic/Lumbar Spine: thoraco-lumbar ROM normal, No pain with thoraco-lumbar ROM, No thoracic spinal tenderness and No lumbar spinal tenderness Extrem General: Yes normal to inspection, No edema and No calf tenderness Skin General: warm and dry. Normal skin color. Normal skin turgor Neuro General: patient oriented x3, gait normal and no focal neuro deficit Cranial nerves: Yes Equal, round and reactive pupils present Cognition (Neuro): normal cognition Gait exam (Neuro): Normal gait present Sensory Exam: No Sensory deficit (Neuro) Psych Appearance: grossly normal Affect: normal affect Attitude: cooperative Thought process: Normal thought process present Assessment and Plan Assessment & Plan (1) Cholelithiasis: Code(s): K80.20 - Calculus of gallbladder without cholecystitis without obstruction Plan: No acute symptoms Continue current treatment regimen Follow-up with [facility] surgery as planned Avoid foods that trigger symptoms, including peanut, fatty or greasy foods Follow-up with PCP as planned Return sooner with symptoms or concerns Verbalized understanding and agreed with treatment plan Coding Level of Care Code Est Pt Level 3 (18684) Diagnoses Cholelithiasis K80.20
== END 2023-09-26 13:23 | disposition home or self-care (01) ==
PROVIDERS: PCP Family Medicine; Visit Provider Nurse Practitioner Family
DX: K80.20 Calculus of gallbladder without cholecystitis without obstruction (principal)
CPT/HCPCS: 99213

== ENCOUNTER 2023-11-24 13:33 | Outpatient (AMB) | payer BC, SELFPAY ==
--- NOTE | 2023-11-24 13:35 | MHC.PC.OV ---
Vital Signs 11/24/23 13:42 Height 6 ft Weight 250 lb BMI 33.9 BP 123/70 Blood Pressure Location Rt brachial Position Sitting Respiration 12 Pulse 68 Pulse Source Pulse Oximeter Temp 97.5 F Temp Source Temporal Artery Scan Pulse Oximetry (%) 98 Oxygen Delivery Method Room Air Intake Visit Reasons: Abdominal pain/Gastro referral Intake Note: Patient was seen at [facility] for abdominal pain. Patient would like a referral to surgery for gallbladder removal. Jig Borer Required: No Accompanied by: Self / Same As Patient Allergies No Known Allergies Allergy (Verified 11/24/23 13:44) Tobacco use date assessed: 09/26/23 HPI HPI Comments History of Present Illness Details 53-year-old male here today for hospital discharge follow-up. Was seen at [facility] Emergency room on 09/16/2023 for abdominal pain. Workup concluded that he had gallbladder disease however not acute cholecystitis. Recommended outpatient elective cholecystectomy. CT imaging positive for large gallstone measuring 2.8 cm. Leukocytosis 19.1, elevated lactate 2.5. All other labs within normal limits including alk-phos, lipase, AST, ALT and bili. CT also showed mild gallbladder wall stranding. Ultrasound was done to confirm which showed no signs of cholecystitis. To confirm the large gallstone. One attack after eating leonel 7-10 days later. No vomiting, Just severe pain. When pain stopped had chills, self limiting. Would like referral to [facility]. 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 Juan Patrick, Patti Montoya, Moo Escamilla and colleagues, with an educational jason from [employer]. Review of Systems Const All systems reviewed & are unremarkable except as noted in HPI and below Physical exam (Primary Care) Tobacco/Smoking Status: Tobacco use Status Tobacco use date assessed 09/26/23 11/24/23 13:37 Patient Tobacco Use Status Never used Tobacco 11/24/23 13:37 e-Cigarette/Vaping Use Never Used 11/24/23 13:37 Thrive Assessment: Date of Thrive Assessment Date Thrive assessed 11/02/21 11/24/23 13:37 Const Other: AWAKE ALERT ORIENTED Sclera is nonicteric bilat Mucous membranes moist Regular rate and rhythm Lung sounds clear to auscultation bilat Abdomen soft nontender bowel sounds are within normal limits Assessment and Plan Assessment & Plan (1) Cholelithiasis: Comment: Refer to [facility]'s general surgery group. Education provided on foods to avoid Code(s): K80.20 - Calculus of gallbladder without cholecystitis without obstruction Qualifiers: Cholelithiasis location: gallbladder Cholecystitis presence: without cholecystitis Biliary obstruction: without biliary obstruction Qualified Code(s): K80.20 - Calculus of gallbladder without cholecystitis without obstruction (2) Hospital discharge follow-up: Code(s): Z09 - Encounter for follow-up examination after completed treatment for conditions other than malignant neoplasm Plan: This note is constructed using voice recognition software. While every effort has been made to ensure accuracy in hotel office manager, still errors may have been included Sometimes, these errors may affect the content or meaning of the given sentence . Total time spent caring for the patient today was 30 minutes. This includes time spent before the visit reviewing the chart, time spent during the visit, and time spent after the visit on documentation Orders: Referrals General Surgery Referral K80.20 - Calculus of gallbladder without cholecystitis without obstruction Coding Level of Care Code Est Pt Level 4 (51149) Diagnoses Calculus of gallbladder without cholecystitis without obstruction K80.20 Cholelithiasis location: gallbladder Cholecystitis presence: without cholecystitis Biliary obstruction: without biliary obstruction Hospital discharge follow-up Z09
[2023-11-24 13:42] VITALS: BP 123/70; PULSE 68; RESP 12; TEMP 36.4; O2SAT 98; BMI 33.9
== END 2023-11-24 13:54 | disposition home or self-care (01) ==
PROVIDERS: PCP Family Medicine; Visit Provider Nurse Practitioner Family
DX: K80.20 Calculus of gallbladder without cholecystitis without obstruction (principal); Z09 Encounter for follow-up examination after completed treatment for conditions other than malignant neoplasm
CPT/HCPCS: 99214

== ENCOUNTER 2023-12-04 12:51 | Outpatient (AMB) | payer BC, SELFPAY ==
--- NOTE | 2023-12-04 13:01 | A.OFFVIS_ITS ---
Intake Vital Signs 12/04/23 13:07 Height 6 ft Weight 248 lb BMI 33.6 BP 125/81 Blood Pressure Location Rt brachial Position Sitting Pulse 70 Intake Visit Reasons: Calculus of gallbladder Intake Note: Patient referred by Yanira Lea for calculus of gallbladder. Patient was seen at [facility] ER on 09-15-23. Patient c/o: abd pain. Reports eating better. Abd CT scan and US dated 09-15-23. Industrial Electrician Required: No Accompanied by: Self / Same As Patient Allergies No Known Allergies Allergy (Verified 12/04/23 13:05) HPI HPI Comments History of Present Illness Details Patient presents with several month history of symptomatic gallbladder. His symptoms of right upper quadrant/epigastric pain radiating around to his back. He had an ER visit in August and another facility. Workup demonstrated cholelithiasis. Because of recurrence and persistence of symptoms, patient presents for further evaluation. He otherwise is tolerating his diet. He is having regular bowel habits. He has never been jaundiced before. 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 Lower midline scar from exploratory laparotomy in his youth. Assessment & Plan Assessment & Plan (1) Recurrent biliary colic: Code(s): K80.50 - Calculus of bile duct without cholangitis or cholecystitis without obstruction (2) Cholelithiasis: Comment: Refer to [facility]'s general surgery group. Education provided on foods to avoid Code(s): K80.20 - Calculus of gallbladder without cholecystitis without obstruction Qualifiers: Cholelithiasis location: gallbladder Cholecystitis presence: without cholecystitis Biliary obstruction: without biliary obstruction Qualified Code(s): K80.20 - Calculus of gallbladder without cholecystitis without obstruction Plan Risks, benefits, alternatives laparoscopic possible open cholecystectomy reviewed the patient included but not limited to bleeding, infection, recurrence of symptoms, numbness, pain, scarring, bowel or bile duct injury or leak and the patient wishes to proceed. All questions answered. Arrangements will be made for this. Coding Level of Care Code New Pt Level 5 (97774) Diagnoses Recurrent biliary colic K80.50 Calculus of gallbladder without cholecystitis without obstruction K80.20 Cholelithiasis location: gallbladder Cholecystitis presence: without cholecystitis Biliary obstruction: without biliary obstruction
[2023-12-04 13:07] VITALS: BP 125/81; PULSE 70; BMI 33.6
== END 2023-12-04 13:20 | disposition home or self-care (01) ==
PROVIDERS: PCP Family Medicine; Referring Provider Nurse Practitioner Family; Visit Provider Surgery
DX: K80.50 Calculus of bile duct without cholangitis or cholecystitis without obstruction (principal); K80.20 Calculus of gallbladder without cholecystitis without obstruction
CPT/HCPCS: 99204

== ENCOUNTER → 2023-12-04 12:51 | Outpatient (BNVA) | payer BC, SELFPAY | PROVIDERS: PCP Family Medicine; Referring Provider Nurse Practitioner Family; Visit Provider Surgery ==

== ENCOUNTER 2023-12-12 06:05 | Outpatient (REF) | payer BC, SELFPAY ==
[2023-12-12 11:25] LABS: Appearance Urine Clear; Color Urine Yellow; Glucose Urine UA Negative (Negative); Leukocyte Esterase Urine Negative (Negative); Nitrite Urine Negative (Negative); PH 5.5 (5.0-9.0); Urine Blood Negative (Negative); Urine Ketones Negative (Negative); Urine Protein Negative (Neg-Trace)
[2023-12-12 12:16] LABS: Prostate Specific Antigen Scr 1.51 ng/mL (<0.05-4.0)
[2023-12-12 12:26] LABS: Alanine Aminotransferase 26 U/L (0-40); Albumin Level 4.1 g/dL (3.5-5.0); Alkaline Phosphatase 60 U/L (39-117); Anion Gap 10 (12-20); Aspartate Amino Transferase 19 U/L (5-37); Bilirubin Total 0.9 mg/dL (0.0-1.0); Blood Urea Nitrogen 15 mg/dL (9-16); Calcium 9.2 mg/dL (8.4-10.2); Carbon Dioxide 27 mmol/L (22-29); Chloride 107 mmol/L (96-108); Cholesterol 160 mg/dL (<200); Estimated Glomerular Filt Rate > 60; Glucose Fasting 96 mg/dL (60-99); HDL Cholesterol 34 mg/dL (>40); LDL Cholesterol Calculated 94 mg/dL (<100); Potassium 3.8 mmol/L (3.3-5.1); Sodium 140 mmol/L (135-145); Total Protein 6.6 g/dL (6.5-8.0); Triglycerides 160 mg/dL (<150)
[2023-12-12 12:34] LABS: Creatinine Urine 112.54 mg/dL; Microalbum/Creatinine Ratio Ur 4.4 ug/mg cr (<30)
[2023-12-12 12:43] LABS: TSH reflex Free T4 1.36 uIU/mL (0.32-4.0)
== END 2023-12-12 06:06 | disposition home or self-care (01) ==
LOC: HO.HMGCLDS 06:05
PROVIDERS: PCP Family Medicine; Visit Provider Family Medicine
DX: Z00.00 Encounter for general adult medical examination without abnormal findings (principal); Z12.5 Encounter for screening for malignant neoplasm of prostate; E78.1 Pure hyperglyceridemia; R73.01 Impaired fasting glucose; I10 Essential (primary) hypertension
CPT/HCPCS: 36415; 80053; 80061; 81003; 82043; 82570; 84153; 84443

== ENCOUNTER → 2023-12-22 16:02 | Outpatient (AMB) | payer BC, SELFPAY ==
--- NOTE | 2023-12-22 16:07 | MHC.PC.OV ---
Vital Signs 12/22/23 16:12 Height 6 ft Weight 239 lb 8 oz BMI 32.5 BP 110/82 Blood Pressure Location Lt brachial Position Sitting Respiration 12 Pulse 76 Pulse Source Pulse Oximeter Temp 98.4 F Temp Source Oral Pulse Oximetry (%) 98 Oxygen Delivery Method Room Air Intake Visit Reasons: CPE with f/u lab health maintenance Intake Note: Physical. Lab results Stand Grinder Required: No Allergies No Known Allergies Allergy (Verified 12/22/23 16:08) Tobacco use date assessed: 12/22/23 Dental Screening Dental Screen Date: 12/22/23 Did you have a dental visit in the last 12 months?: Yes Did you have a dental problem in the last 6 months where you did not have access to dental care?: No Was dental information given to patient?: Patient has dentist HPI CPE with f/u lab health maintenance HPI Details 53 y/o male presents for a CPE with f/u labs and health maintenance. Labs were drawn 12/12/23. Reviewed labs with pt. Triglycerides 160. TC 160. LDL 94. HDL low at 34. Pt has complaints of a L ear abscess. 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 1. Little interest or pleasure in doing things: not at all 2. Feeling down, depressed, or hopeless: not at all 3. Trouble falling or staying asleep, or sleeping too much: not at all 4. Feeling tired or having little energy: not at all 5. Poor appetite or overeating: not at all 6. Feeling bad about yourself - or that you are a failure or have let yourself or your family down: not at all 7. Trouble concentrating on things, such as reading the newspaper or watching television: not at all 8. Moving or speaking so slowly that other people could have noticed. Or the opposite - being so fidgety or restless that you have been moving around a lot more than usual: not at all 9. Thoughts that you would be better off or of hurting yourself in some way: not at all Total score: 0 Depression Screening Interpretation: Negative Depression Screening Done: Yes 23441 - PHQ-9 Billing: Yes Source: Developed by Drs. Juan Patrick, Patti Montoya, Moo Escamilla and colleagues, with an educational jason from [employer]. Thrive Questionnaire Date Thrive assessed: 11/02/21 I am a: Patient What is your living situation today?: I have a steady place to live Within the past 12 months, did the food you bought not last and you didn't have the money to get more?: Never true Within the past 12 months, did you worry whether your food would run out before you got money to buy more?: Never true Do you have trouble paying for medicines?: No Do you have trouble getting transportation to medical appointments?: No Do you have trouble paying your heating and electricity bill?: No Do you have trouble taking care of your child, family member or friend?: No Do you have trouble with day-to-day activities such as bathing, preparing meals, shopping, managing finances, etc.?: No Are you currently unemployed and looking for a job?: No Are you interested in more education?: No Please select the resources that you would like help with: None Currently or been in a relationship where the following occur: no concerns reported THRIVE Score: 0 AUDIT C Alcohol Use Questionnaire (AUDIT-C) 1. How often do you have a drink containing alcohol?: Monthly or less 2. How many drinks containing alcohol do you have on a typical day when you are drinking?: 1 or 2 3. How often do you have six or more drinks on one occasion?: Never Total Score: 1 ABHILASH-7 AMB Questionnaire ABHILASH-7 Date ABHILASH - 7 assessed: 12/22/23 Feeling nervous, anxious, or on edge: 0 = Not at all Not being able to stop or control worryin = Not at all Worrying too much about different things: 0 = Not at all Trouble relaxin = Not at all Being so restless that it is hard to sit still: 0 = Not at all Becoming easily annoyed or irritable: 0 = Not at all Feeling afraid as if something awful might happen: 0 = Not at all Total ABHILASH-7 score (0-4 normal; 5-9 mild; 10-14 moderate; 15-21 severe): 0 Source: Developed by Drs. Juan Patrick, Patti Montoya, Moo Escamilla and colleagues, with an educational jason from [employer]. ABHILASH-7 Assessment Billing ABHILASH-7 Assessment Tool: ABHILASH-7 Assessment 06075 Review of Systems Const Denies chills, Denies fatigue, Denies fever(s), Denies headache(s) and Denies weakness Eyes Denies change in vision ENT Denies dizziness, Denies headache(s), Denies hearing loss, Denies nasal congestion, Denies sinus pain, Denies sinus pressure and Denies sore throat Card Denies chest pain, Denies lightheadedness, Denies dyspnea and Denies other (palpitations) Resp Denies cough, Denies dyspnea and Denies wheezing GI Denies abdominal pain, Denies melena, Denies hematochezia, Denies change in bowel habits, Denies dyspepsia and Denies nausea Denies hematuria and Denies dysuria Musc Denies abnormal gait, Denies myalgias, Denies arthralgias, Denies numbness and Denies tingling Skin/Breast Denies rash, Denies unusual bruising and Denies wounds Neuro Denies abnormal gait, Denies dizziness, Denies headache(s), Denies memory loss, Denies numbness, Denies Sensory deficit (Neuro), Denies tingling and Denies weakness Psych Denies anxiety, Denies depression and Denies memory loss Endo Denies cold intolerance, Denies fatigue, Denies heat intolerance, Denies polydipsia and Denies polyuria Yevgeniy/Lymph Denies easy bleeding and Denies easy bruising Aller/Immun Denies wheezing Physical exam (Primary Care) Vital Signs: Last Vital Signs Temp 98.4 F 12/22/23 16:12 Pulse 76 12/22/23 16:12 Resp 12 12/22/23 16:12 BP 110/82 12/22/23 16:12 Pulse Ox 98 12/22/23 16:12 Oxygen Delivery Method Room Air 12/22/23 16:12 BMI result Body Mass Index 32.5 Tobacco/Smoking Status: Tobacco use Status Tobacco use date assessed 12/22/23 12/22/23 16:17 Patient Tobacco Use Status Never used Tobacco 12/22/23 16:20 e-Cigarette/Vaping Use Never Used 12/22/23 16:20 PHQ-9: PHQ-9 Score PHQ-9: Total score 0 12/22/23 16:27 Depression Screening Interpretation: Negative Thrive Assessment: Date of Thrive Assessment Date Thrive assessed 11/02/21 12/22/23 16:17 Currently or been in a relationship where the following occur: no concerns reported Const General: no acute distress, well developed, alert and awake Nutritional Appearance: well nourished Orientation/consciousness: patient oriented x3 HENMT Other: L ear abscess, tiny at the top of the pinna, mild erythema around it Head: Yes normocephalic and Yes atraumatic Ears: hearing grossly normal bilaterally and TM's normal bilaterally General nose exam: Normal external nose present and Normal nares present Mouth: Normal oral and palatal mucosa present and moist mucous membranes Teeth and gingiva: dentition normal Throat: Yes posterior oropharynx normal Eyes General: appearance normal, both eyes and all related structures Pupils: Equal, round and reactive pupils present and Pupil accommodation reflex normal EOM: EOMs intact bilaterally Neck Neck: Yes normal visual inspection, Yes no lymphadenopathy and Yes trachea midline Thyroid: Thyroid normal Carotids: no bruits Lymphatic: no lymphadenopathy noted Chest Chest palpation & inspection: normal inspection of the chest Resp Effort & Inspection: normal respiratory effort Auscultation: clear to auscultation bilaterally Cardio Rate: regular rate Rhythm: regular rhythm Heart sounds: S1 normal heart sound present, S2 normal heart sound present, no gallops, no murmurs and no rubs Bruits: no abdominal aortic bruits and no carotid bruits GI Palpation (GI): No Abdominal aortic bruit present, Soft to palpation, nontender, No hepatosplenomegaly present and No Rebound tenderness present Auscultation: normal bowel sounds General: Yes no CVA tenderness Back/Spine/Pelvis Back: no CVA tenderness Cervical Spine: cervical ROM normal and No Cervical spine tenderness Thoracic/Lumbar Spine: thoraco-lumbar ROM normal, No pain with thoraco-lumbar ROM, No thoracic spinal tenderness and No lumbar spinal tenderness Skin Lesions: no lesions Rashes: no rashes Trauma: no lacerations or abrasions Wounds: no wounds Nails: normal Neuro General: patient oriented x3 Cranial nerves: Yes Equal, round and reactive pupils present Cognition (Neuro): normal cognition Gait exam (Neuro): Normal gait present Motor exam (neuro): 5/5 motor strength present throughout Sensory Exam: No Sensory deficit (Neuro) Deep tendon reflexes (DTR's): Right patellar reflex intensity grade: 2+ and Left patellar reflex intensity grade: 2+ Extrem General: Yes normal to inspection and No edema Psych Appearance: grossly normal Affect: normal affect Attitude: cooperative Thought process: Normal thought process present Assessment and Plan Assessment & Plan (1) Adult general medical exam: Code(s): Z00.00 - Encounter for general adult medical examination without abnormal findings Plan: 53-year-old?male?presents?for?complete?physical?exam Encouraged?healthy?diet?with?active?lifestyle?and?plenty?of?exercise (2) Hypertriglyceridemia: Code(s): E78.1 - Pure hyperglyceridemia Plan: Elevated?triglycerides?encouraged?a?diet?lower?in?saturated?fats?and?cholesterol?as?well?as?sugars?and?starches Continue?weight?loss (3) Elevated fasting glucose: Code(s): R73.01 - Impaired fasting glucose Plan: Patient?has?had?a?10?lb?weight?loss?recently.??Fasting?blood?sugar?is?in?normal?range?? Continue?weight?loss Work?at?healthy?diet?lower?in?sugars?and?starches (4) Abscess of external ear: Code(s): H60.00 - Abscess of external ear, unspecified ear Plan: Tiny?abscess?which?persists?despite?warm?compresses Skin?at?outer?ear?was?prepped?and?draped?in?the?usual?fashion An ethyl?chloride?distracting?spray?was?used?for?anesthesia An 18?gauge?needle?was?used?to?Gray?the?cyst?and?a?tiny?amount?of?pus?and?serosanguineous?fluid?was?expressed. The?majority?of?the?cyst?remained. Pressure?was?applied?to?wound?until?bleeding?had?stopped Patient?tolerated?the?procedure?well Given?patient?still?has?painful?cyst?at?left?ear, I?have?referred?him?to?Dermatology For?now,?continue?warm?so (5) Low HDL (under 40): Code(s): E78.6 - Lipoprotein deficiency Plan: Increase?exercise (6) Encounter for screening colonoscopy: Comment: index screening colonoscopy Code(s): Z12.11 - Encounter for screening for malignant neoplasm of colon Plan: Last?colonoscopy?was?2021?at?[facility] [place] Recommended?follow-up?in?2026 (7) Screening for prostate cancer: Code(s): Z12.5 - Encounter for screening for malignant neoplasm of prostate Plan: PSA?is?within?normal?limits Orders: Referrals Dermatology Referral H60.00 - Abscess of external ear, unspecified ear, L72.9 - Follicular cyst of the skin and subcutaneous tissue, unspecified Coding Level of Care Code Est Pt Level 3 (20198) Est Pt Prev Care 40-64y(60921) Diagnoses Adult general medical exam Z00.00 Hypertriglyceridemia E78.1 Elevated fasting glucose R73.01 Abscess of external ear H60.00 Low HDL (under 40) E78.6 Encounter for screening colonoscopy Z12.11 Screening for prostate cancer Z12.5 Additional Codes ABHILASH-7 Assessment Billing - ABHILASH-7 Assessment Tool: ABHILASH-7 Assessment 69145 ([id number])
[2023-12-22 16:12] VITALS: BP 110/82; PULSE 76; RESP 12; TEMP 36.9; O2SAT 98; BMI 32.5
== END ==
PROVIDERS: PCP Family Medicine; Visit Provider Family Medicine
DX: Z00.00 Encounter for general adult medical examination without abnormal findings (principal); E78.1 Pure hyperglyceridemia; R73.01 Impaired fasting glucose; H60.02 Abscess of left external ear; E78.6 Lipoprotein deficiency
CPT/HCPCS: 69000; 99396

== ENCOUNTER 2024-01-05 07:30 | Day surgery (SDC) | payer BC, SELFPAY ==
[2024-01-02 14:16] VITALS: BMI 32.4
--- NOTE | 2024-01-04 11:46 | MHC.SHP ---
Pre-Procedural Eval Section A - 24 Hr Update-Section A only Date of Service: 01/04/24 The patient is an INPATIENT: No Changes since office visit: No Cold of Flu in the past 2 weeks, No New Medical Problems, No Changes in Medication and No Patient answered all questions Section B - Complete if H&P > 30 days Chief Complaint: Calculus of bile duct without cholangitis or shayy Allergies: Allergies Allergy/AdvReac Type Severity Reaction Status Date / Time No Known Allergies Allergy Verified 12/22/23 16:08 Plan I have reviewed the history and physical and performed a pertinent physical examination on my patient. No changes have occurred unless specified. Time Spent With Patient Time: Total time managing care of this patient today ____ minutes.
--- NOTE | 2024-01-04 11:52 | P.CONAN_ITS ---
Documented by User: Marquita Tyler NP 01/04/24 11:53 HPI - Anesthesia Eval Consult details Narrative: 53yo M for Cholecystectomy Laparoscopic, possible open PMFSH Active Problems Active Problems: All Active Problems Abscess of external ear (Acute) Recurrent biliary colic (Acute) Cholelithiasis (Acute) Nail deformity (Acute) Low libido (Acute) Skin abscess (Acute) Osteoarthritis of finger of right hand (Acute) Finger pain, right (Acute) Plantar fasciitis (Acute) Change in hearing (Acute) Elevated fasting glucose (Acute) Body aches (Acute) Viral illness (Acute) Diverticulosis of colon (Acute) Tubular adenoma (Acute) Laboratory exam ordered as part of routine general medical examination (Acute) Encounter for screening colonoscopy (Acute) Screening for prostate cancer (Acute) Right hand pain (Acute) Hypertriglyceridemia (Acute) Low HDL (under 40) (Acute) Adult general medical exam (Acute) Obesity (BMI 30.0-34.9) (Acute) Difficulty hearing (Acute) Heartburn (Acute) Diarrhea (Acute) Past Medical History Medical History (Updated 01/05/24 @ 07:44 by Jasmin Temple RN) Arthritis Hypertriglyceridemia Hearing difficulty Heartburn Family History Family History (Updated 12/22/23 @ 16:21 by Binta Staton CMA) Mother HTN (hypertension) Family history of problems with anesthesia: No Surgical History Surgical History History of esophagogastroduodenoscopy (EGD) Hx of colonoscopy History of appendectomy History of Problems with Anesthesia: No Social History Social History (Updated 12/22/23 @ 16:20 by Binta Staton CMA) Housing: House Alcohol intake: current Alcohol intake frequency: a few times a month Patient Tobacco Use Status: Never used Tobacco e-Cigarette/Vaping Use: Never Used Second Hand Smoke Exposure: No Use of substances other than those prescribed or required for medical reasons: No Are you DNR?: No Advance Directives: No Advance Directives Information Provided: Yes service: No Current occupational status: employed 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, 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 Current occupational exposures/hazards: No Cognitive needs: No Hearing needs: No Vision needs: No (reading glasses) Meds Allergies Allergy/AdvReac Type Severity Reaction Status Date / Time No Known Allergies Allergy Verified 01/05/24 07:45 Active Medications: Current Medications Cefazolin Sodium/Dextrose (Ancef) 2 gm in 50 mls @ 100 mls/hr IV PREOP ONE Stop: 01/04/24 12:15 Exam Height,Weight and Vital Signs: Height 6 ft Weight 108.409 kg Pertinent Lab Results Pertinent Lab Results: Laboratory Tests 12/12/23 06:10 Sodium 140 Potassium 3.8 Chloride 107 Carbon Dioxide 27 BUN 15 Creatinine 0.82 Assessment and Plan Assessment Anesthesia Assessment: Chart Reviewed Final Anesthetic Review Family History of Problems with Anesthesia: No History of Problems with Anesthesia: No Documented by User: Arianne Damon MD 01/05/24 09:42 PMFSH Past Medical History Medical History (Updated 01/05/24 @ 07:44 by Jasmin Temple RN) Arthritis Hypertriglyceridemia Hearing difficulty Heartburn Family History Family History (Updated 12/22/23 @ 16:21 by Binta Staton CMA) Mother HTN (hypertension) Surgical History Surgical History History of esophagogastroduodenoscopy (EGD) Hx of colonoscopy History of appendectomy Social History Social History (Updated 12/22/23 @ 16:20 by Binta Staton CMA) Housing: House Alcohol intake: current Alcohol intake frequency: a few times a month Patient Tobacco Use Status: Never used Tobacco e-Cigarette/Vaping Use: Never Used Second Hand Smoke Exposure: No Use of substances other than those prescribed or required for medical reasons: No Are you DNR?: No Advance Directives: No Advance Directives Information Provided: Yes service: No Current occupational status: employed 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, 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 Current occupational exposures/hazards: No Cognitive needs: No Hearing needs: No Vision needs: No (reading glasses) Meds Allergies Allergy/AdvReac Type Severity Reaction Status Date / Time No Known Allergies Allergy Verified 01/05/24 07:45 Exam Airway Mallampati Class: III TM Dist: >3cm Neck ROM: Full Loose/Missing/Broken Teeth: No Heart: RRR Lungs: CTA Assessment and Plan Assessment Anesthesia Assessment: Anesthesia Plan Discussed Final Anesthetic Review NPO: Yes ASA Class: II Final Preanesthetic Review: Meds/Allgs Chart Reviewed, Consent Obtained/Reviewed and Anes Risks/Benef Reviewed Patient Risk: Low Procedure Risk: Intermediate Anesthetic Plan Anesthetic Plan: GA Disposition: Standard PACU
[2024-01-05] VITALS (8 sets, daily range): BP systolic 129–151; BP diastolic 86–104; PULSE 65–79; RESP 15–18; TEMP 36.1–36.6; O2SAT 95–100; BMI 32.5
[2024-01-05] MEDS: Lactated Ringers 1,000 ML 100 ML IVCONT (08:07)
--- NOTE | 2024-01-05 10:52 | P.OP_ITS ---
Operative Note Operative Note Date of Service: 01/05/24 Narrative: Preoperative diagnosis: [] Symptomatic gallbladder Postop diagnosis: [] The same Procedure [] laparoscopic cholecystectomy Surgeon: [] Melvin Administrative Manager: [] Anna Type of Anesthesia: [] General Indication for surgery: [] Gallbladder, very intrahepatic. Marked omental adhesions to the gallbladder. Findings: [] Patient brought to the operating room, placed on operative table in supine position, after an adequate level of general anesthesia was induced, the patient's abdomen was prepped and draped in usual sterile fashion. Using a supraumbilical curvilinear incision, Hair technique was used to insufflate abdominal cavity to 15 mm of CO2. Upper midline and right subcostal ports were placed under direct laparoscopic view, and the patient placed in reverse Trendelenburg position, and tilted to the left. Intraoperative findings were as noted above. Gallbladder was grasped using laparoscopic graspers, and retracted superiorly and laterally. Dense omental adhesions were swept off the gallbladder with the hilum was approached. Cystic artery and cystic duct were each identified, circumferentially skeletonized, traced directly into the gallbladder, and critical view obtained. Each was clipped proximally x2, distally x1, and transected. Gallbladder was then cauterized from the gallbladder fossa using Bovie. Specimen was placed in an Endo-Catch bag, and retrieved through the umbilical port. Abdominal cavity was copiously irrigated and secured hemostasis. All ports were removed under direct laparoscopic view. Wounds were closed in the following manner; umbilical wound is fascia reapproximated using interrupted 0 Vicryl sutures. Skin wounds were closed using subcuticular 4-0 Vicryl sutures followed by Steri-Strips and sterile dressings. Wounds were infiltrated 0.5% Marcaine at completion. Sponge, needle, and instrument counts reported correct. Patient tolerated the procedure well and emerged from anesthesia stable condition. EBL minimal
[2024-01-05] MEDS: oxyCODONE HCl Immed Release 5 MG TABLET PO (12:08)
== END 2024-01-05 12:50 | disposition home or self-care (01) ==
PROVIDERS: PCP Family Medicine; Visit Provider Surgery
PROC: 0FT44ZZ Resection of Gallbladder, Percutaneous Endoscopic Approach (ICD-10-PCS; CPT 47562; principal; 2024-01-05 09:50)
DX: K80.10 Calculus of gallbladder with chronic cholecystitis without obstruction (principal); K82.8 Other specified diseases of gallbladder; Q44.1 Other congenital malformations of gallbladder; E78.1 Pure hyperglyceridemia; R12 Heartburn
CPT/HCPCS: 47562; 88304; J0690; J1100; J1170; J1885; J1920; J2250; J2405; J2704; J2795; J3010

== ENCOUNTER → 2024-01-05 07:30 | Outpatient (BNV) | payer BC, SELFPAY | PROVIDERS: PCP Family Medicine; Visit Provider Surgery | DX: K80.20 Calculus of gallbladder without cholecystitis without obstruction (principal) | CPT/HCPCS: 47562 ==

== ENCOUNTER 2024-01-16 12:40 | Outpatient (AMB) | payer BC, SELFPAY ==
--- NOTE | 2024-01-16 12:45 | MHC.OFFVIS ---
Vital Signs 01/16/24 12:46 Height 6 ft Weight 239 lb BMI 32.4 BP 133/81 Blood Pressure Location Lt brachial Position Sitting Pulse 71 Intake Visit Reasons: S/P lap shayy Intake Note: Patient is seen in office for post op assessment post laparoscopic cholecystectomy. Pt c/o: denies any concerns at the time of visit Sulfide Head Operator Required: No Accompanied by: Self / Same As Patient Allergies No Known Allergies Allergy (Verified 01/16/24 12:46) HPI Comments Details: Patient presents for follow-up. He has tolerating a diet. Having regular bowel habits. He has minimal incisional discomfort. He is increasing his activity level. 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 All wounds clean dry and intact healing well Assessment & Plan Assessment & Plan (1) Status post laparoscopic cholecystectomy: Code(s): Z90.49 - Acquired absence of other specified parts of digestive tract Category: Medical Plan Patient has been given local instructions including avoiding strenuous activities for next few weeks time, and appropriate note for work, and will see me p.r.n.. All questions answered. Coding Level of Care Code Global (73288) Diagnoses Status post laparoscopic cholecystectomy Z90.49
[2024-01-16 12:46] VITALS: BP 133/81; PULSE 71; BMI 32.4
== END 2024-01-16 12:57 | disposition home or self-care (01) ==
PROVIDERS: PCP Family Medicine; Visit Provider Surgery
DX: Z90.49 Acquired absence of other specified parts of digestive tract (principal)
CPT/HCPCS: 99024

== ENCOUNTER → 2024-01-16 12:40 | Outpatient (BNVA) | payer BC, SELFPAY | PROVIDERS: PCP Family Medicine; Visit Provider Surgery ==

== ENCOUNTER 2024-05-28 06:04 | Outpatient (REF) | payer BC, SELFPAY ==
[2024-05-28 10:30] LABS: Alanine Aminotransferase 32 U/L (0-40); Albumin Level 4.3 g/dL (3.5-5.0); Alkaline Phosphatase 60 U/L (39-117); Anion Gap 12 (12-20); Aspartate Amino Transferase 21 U/L (5-37); Bilirubin Total 0.7 mg/dL (0.0-1.0); Blood Urea Nitrogen 17 mg/dL (9-16); Calcium 9.6 mg/dL (8.4-10.2); Carbon Dioxide 27 mmol/L (22-29); Chloride 106 mmol/L (96-108); Cholesterol 177 mg/dL (<200); Estimated Glomerular Filt Rate > 60; Glucose Fasting 97 mg/dL (60-99); HDL Cholesterol 38 mg/dL (>40); LDL Cholesterol Calculated 107 mg/dL (<100); Sodium 141 mmol/L (135-145); Total Protein 6.9 g/dL (6.5-8.0); Triglycerides 160 mg/dL (<150)
== END 2024-05-28 06:05 | disposition home or self-care (01) ==
LOC: HO.HMGCLDS 06:04
PROVIDERS: PCP Family Medicine; Visit Provider Family Medicine
DX: Z00.00 Encounter for general adult medical examination without abnormal findings (principal); E78.1 Pure hyperglyceridemia
CPT/HCPCS: 36415; 80053; 80061

== ENCOUNTER 2024-05-31 11:35 | Outpatient (AMB) | payer BC, SELFPAY ==
--- NOTE | 2024-05-31 11:42 | A.OFFPC_ITS ---
Vital Signs 05/31/24 11:44 Height 6 ft Weight 252 lb BMI 34.2 BP 101/64 Blood Pressure Location Rt popliteal Position Right Lateral Respiration 16 Pulse 78 Pulse Source Pulse Oximeter Temp 97.7 F Temp Source Temporal Artery Scan Pulse Oximetry (%) 96 Oxygen Delivery Method Room Air Intake Visit Reasons: f/u hypertriglyceridemia Intake Note: follow up for lab results Allergies No Known Allergies Allergy (Verified 05/31/24 11:43) Medication List - Last Reconciled 05/31/24 by Farzad Lorenzana MD omeprazole 40 mg PO DAILY 90 days Tobacco use date assessed: 12/22/23 Dental Screening Dental Screen Date: 12/22/23 HPI f/u hypertriglyceridemia HPI Details 53 y/o male presents to f/u elevated tri glycerides with low HDL. Had encouraged diet and exercise. Labs drawn 05/28/24. Reviewed labs with pt. Triglycerides 160. TC 177. LDL 107. HDL low at 38. Has complaints of R knee pain. 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 Juan Patrick, Patti Montoya, Moo Escamilla and colleagues, with an educational jason from [employer] Review of Systems Const Denies chills, Denies fatigue, Denies fever(s), Denies headache(s) and Denies weakness ENT Denies dizziness and Denies headache(s) Card Denies dyspnea Resp Denies cough, Denies dyspnea, Denies wheezing and Denies other (shortness of breath) Musc Denies numbness and Denies tingling Neuro Denies dizziness, Denies headache(s), Denies numbness, Denies tingling and Denies weakness Psych Denies anxiety and Denies depression Endo Denies fatigue Aller/Immun Denies wheezing Physical exam (Primary Care) Vital Signs: Last Vital Signs Temp 97.7 F 05/31/24 11:44 Pulse 78 05/31/24 11:44 Resp 16 05/31/24 11:44 BP 101/64 05/31/24 11:44 Pulse Ox 96 05/31/24 11:44 Oxygen Delivery Method Room Air 05/31/24 11:44 BMI result Body Mass Index 34.2 Tobacco/Smoking Status: Tobacco use Status Tobacco use date assessed 12/22/23 05/31/24 11:47 Patient Tobacco Use Status Never used Tobacco 05/31/24 11:47 e-Cigarette/Vaping Use Never Used 05/31/24 11:47 Thrive Assessment: Date of Thrive Assessment Date Thrive assessed 11/02/21 05/31/24 11:47 Const General: well developed; No acute distress Nutritional Appearance: well nourished Orientation/consciousness: patient oriented x3 HENMT Head: Yes normocephalic and Yes atraumatic Eyes General: appearance normal, both eyes and all related structures Pupils: Equal, round and reactive pupils present EOM: EOMs intact bilaterally Resp Effort & Inspection: normal respiratory effort Auscultation: clear to auscultation bilaterally Cardio Rate: regular rate Rhythm: regular rhythm Heart sounds: S1 normal heart sound present, S2 normal heart sound present, no gallops, no murmurs and no rubs Neuro General: patient oriented x3 and gait normal Cranial nerves: Yes Equal, round and reactive pupils present Psych Affect: normal affect Assessment and Plan Assessment & Plan (1) Hypertriglyceridemia: Code(s): E78.1 - Pure hyperglyceridemia Plan: Triglycerides?remain?mildly?elevated. He?has?gained?back?some?of?the?weight?he?lost. Encouraged?improved?diet?exercise?and?weight?loss (2) Low HDL (under 40): Code(s): E78.6 - Lipoprotein deficiency Plan: Encouraged?exercise (3) Right knee pain: Code(s): M25.561 - Pain in right knee Plan: Patient?notes?some?right?knee?pain?surrounding?his?patella Likely?mild?patellar?tendinitis He?can?use?ice/heat,?NSAIDs?and?gentle?stretching. Also?recommended?increasing?strength?of?quadriceps?muscles?with?exercise. Orders: Orders Comprehensive [place]. Panel Fast Today Z00.00 - Encounter for general adult medical examination without abnormal findings Microalbumin, Random (w Creat) Today I10 - Essential (primary) hypertension Lipid Panel Today Z00.00 - Encounter for general adult medical examination without abnormal findings Prostate Specific Antigen Scr Today Z12.5 - Encounter for screening for malignant neoplasm of prostate TSH reflex Free T4 Today Z00.00 - Encounter for general adult medical examination without abnormal findings UA and rflx microscopic Today Z00.00 - Encounter for general adult medical examination without abnormal findings Coding Level of Care Code Est Pt Level 3 (33942) Diagnoses Hypertriglyceridemia E78.1 Low HDL (under 40) E78.6 Right knee pain M25.561
[2024-05-31 11:44] VITALS: BP 101/64; PULSE 78; RESP 16; TEMP 36.5; O2SAT 96; BMI 34.2
== END 2024-05-31 12:06 | disposition home or self-care (01) ==
PROVIDERS: PCP Family Medicine; Visit Provider Family Medicine
DX: E78.1 Pure hyperglyceridemia (principal); E78.6 Lipoprotein deficiency; M25.561 Pain in right knee
CPT/HCPCS: 99213

== ENCOUNTER 2025-01-03 06:43 | Outpatient (REF) | payer BC, SELFPAY ==
[2025-01-03 10:55] LABS: Creatinine Urine 94.11 mg/dL; Microalbumin Urine < 5.0 mg/L
[2025-01-03 11:10] LABS: Alanine Aminotransferase 36 U/L (0-40); Albumin Level 4.2 g/dL (3.5-5.0); Alkaline Phosphatase 61 U/L (39-117); Anion Gap 10 (12-20); Appearance Urine Clear; Aspartate Amino Transferase 23 U/L (5-37); Bilirubin Total 0.9 mg/dL (0.0-1.0); Blood Urea Nitrogen 15 mg/dL (9-16); Calcium 9.4 mg/dL (8.4-10.2); Carbon Dioxide 27 mmol/L (22-29); Chloride 108 mmol/L (96-108); Cholesterol 164 mg/dL (<200); Color Urine Yellow; Estimated Glomerular Filt Rate > 60; Glucose Fasting 94 mg/dL (60-99); Glucose Urine UA Negative (Negative); HDL Cholesterol 34 mg/dL (>40); LDL Cholesterol Calculated 94 mg/dL (<100); Leukocyte Esterase Urine Negative (Negative); Nitrite Urine Negative (Negative); PH 6.5 (5.0-9.0); Potassium 3.9 mmol/L (3.3-5.1); Sodium 141 mmol/L (135-145); Total Protein 6.8 g/dL (6.5-8.0); Triglycerides 180 mg/dL (<150); Urine Blood Negative (Negative); Urine Ketones Negative (Negative); Urine Protein Negative (Neg-Trace)
[2025-01-03 11:20] LABS: Prostate Specific Antigen Scr 1.99 ng/mL (<0.05-4.0)
[2025-01-03 11:27] LABS: TSH reflex Free T4 1.22 uIU/mL (0.32-4.0)
== END 2025-01-03 06:44 | disposition home or self-care (01) ==
LOC: HO.HMGCLDS 06:43
PROVIDERS: PCP Family Medicine; Visit Provider Family Medicine
DX: Z00.00 Encounter for general adult medical examination without abnormal findings (principal); Z12.5 Encounter for screening for malignant neoplasm of prostate; I10 Essential (primary) hypertension
CPT/HCPCS: 36415; 80053; 80061; 81003; 82570; 84153; 84443

== ENCOUNTER 2025-01-10 15:52 | Outpatient (AMB) | payer BC, SELFPAY ==
--- NOTE | 2025-01-10 15:53 | MHC.PC.OV ---
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 Had first noticed it 3 weeks ago. He notes it is neither worsening nor improving. Anxiety/anger He would like to trial medications and a referral to a therapist. Reviewed?labs?patient: Labs drawn 01/03/25. Triglycerides 180. TC 164. LDL 94. HDL low at 34. PSA 1.99. 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 1. Little interest or pleasure in doing things: more than half the days 2. Feeling down, depressed, or hopeless: more than half the days 3. Trouble falling or staying asleep, or sleeping too much: not at all 4. Feeling tired or having little energy: several days 5. Poor appetite or overeating: more than half the days 6. Feeling bad about yourself - or that you are a failure or have let yourself or your family down: not at all 7. Trouble concentrating on things, such as reading the newspaper or watching television: not at all 8. Moving or speaking so slowly that other people could have noticed. Or the opposite - being so fidgety or restless that you have been moving around a lot more than usual: not at all 9. Thoughts that you would be better off or of hurting yourself in some way: not at all Total score: 7 Depression Screening Interpretation: Positive Depression Screening Done: Yes 57135 - PHQ-9 Billing: Yes Source: Developed by Drs. Juan Patrick, Patti Montoya, Moo Escamilla and colleagues, with an educational jason from [employer]. Thrive Questionnaire Date Thrive assessed: 01/10/25 I am a: Patient What is your living situation today?: I have a steady place to live Within the past 12 months, did the food you bought not last and you didn't have the money to get more?: Never true Within the past 12 months, did you worry whether your food would run out before you got money to buy more?: Never true Do you have trouble paying for medicines?: No Do you have trouble getting transportation to medical appointments?: No Do you have trouble paying your heating and electricity bill?: No Do you have trouble taking care of your child, family member or friend?: No Do you have trouble with day-to-day activities such as bathing, preparing meals, shopping, managing finances, etc.?: No Are you currently unemployed and looking for a job?: No Are you interested in more education?: No Please select the resources that you would like help with: None Currently or been in a relationship where the following occur: No concerns reported THRIVE Score: 0 AUDIT C Alcohol Use Questionnaire (AUDIT-C) 1. How often do you have a drink containing alcohol?: Monthly or less 2. How many drinks containing alcohol do you have on a typical day when you are drinking?: 3 or 4 Total Score: 2 Score Reviewed/Action Taken: Yes ABHILASH-7 AMB Questionnaire ABHILASH-7 Date ABHILASH - 7 assessed: 01/10/25 Feeling nervous, anxious, or on edge: 0 = Not at all Not being able to stop or control worryin = Not at all Worrying too much about different things: 0 = Not at all Trouble relaxin = Not at all Being so restless that it is hard to sit still: 0 = Not at all Becoming easily annoyed or irritable: 0 = Not at all Feeling afraid as if something awful might happen: 0 = Not at all Total ABHILASH-7 score (0-4 normal; 5-9 mild; 10-14 moderate; 15-21 severe): 0 Source: Developed by Drs. Juan Patrick, Patti Montoya, Moo Escamilla and colleagues, with an educational jason from [employer]. ABHILASH-7 Assessment Billing ABHILASH-7 Assessment Tool: ABHILASH-7 Assessment 79708 Review of Systems Const Denies chills, Denies fatigue, Denies fever(s), Denies headache(s) and Denies weakness Eyes Denies change in vision ENT Denies dizziness, Denies headache(s), Denies hearing loss, Denies nasal congestion, Denies sinus pain, Denies sinus pressure and Denies sore throat Card Denies chest pain, Denies lightheadedness, Denies dyspnea and Denies other (palpitations) Resp Denies cough, Denies dyspnea and Denies wheezing GI Denies abdominal pain, Denies melena, Denies hematochezia, Denies change in bowel habits, Denies dyspepsia and Denies nausea Denies hematuria and Denies dysuria Musc Denies abnormal gait, Denies myalgias, Denies arthralgias, Denies numbness and Denies tingling Skin/Breast Denies rash, Denies unusual bruising and Denies wounds Neuro Denies abnormal gait, Denies dizziness, Denies headache(s), Denies memory loss, Denies numbness, Denies Sensory deficit (Neuro), Denies tingling and Denies weakness Psych Reports anxiety, Reports depression and Denies memory loss Endo Denies cold intolerance, Denies fatigue, Denies heat intolerance, Denies polydipsia and Denies polyuria Yevgeniy/Lymph Denies easy bleeding and Denies easy bruising Aller/Immun Denies wheezing Physical exam (Primary Care) Vital Signs: Last Vital Signs Temp 98.0 F 01/10/25 16:03 Pulse 86 01/10/25 16:03 Resp 12 01/10/25 16:03 BP 112/60 01/10/25 16:03 Pulse Ox 98 01/10/25 16:03 Oxygen Delivery Method Room Air 01/10/25 16:03 BMI result Body Mass Index 34.0 Tobacco/Smoking Status: Tobacco use Status Tobacco use date assessed 01/10/25 01/10/25 16:06 Patient Tobacco Use Status Never used Tobacco 01/10/25 15:55 e-Cigarette/Vaping Use Never Used 01/10/25 15:55 PHQ-9: PHQ-9 Score PHQ-9: Total score 7 01/10/25 16:06 Depression Screening Interpretation: Positive Thrive Assessment: Date of Thrive Assessment Date Thrive assessed 01/10/25 01/10/25 15:55 Currently or been in a relationship where the following occur: No concerns reported Const General: no acute distress, well developed, alert and awake Nutritional Appearance: well nourished Orientation/consciousness: patient oriented x3 HENMT Head: Yes normocephalic and Yes atraumatic Ears: hearing grossly normal bilaterally and TM's normal bilaterally General nose exam: Normal external nose present and Normal nares present Mouth: Normal oral and palatal mucosa present and moist mucous membranes Teeth and gingiva: dentition normal Throat: Yes posterior oropharynx normal Eyes General: appearance normal, both eyes and all related structures Pupils: Equal, round and reactive pupils present and Pupil accommodation reflex normal EOM: EOMs intact bilaterally Neck Neck: Yes normal visual inspection, Yes no lymphadenopathy and Yes trachea midline Thyroid: Thyroid normal Carotids: no bruits Lymphatic: no lymphadenopathy noted Chest Chest palpation & inspection: normal inspection of the chest Resp Effort & Inspection: normal respiratory effort Auscultation: clear to auscultation bilaterally Cardio Rate: regular rate Rhythm: regular rhythm Heart sounds: S1 normal heart sound present, S2 normal heart sound present, no gallops, no murmurs and no rubs Bruits: no abdominal aortic bruits and no carotid bruits GI Palpation (GI): No Abdominal aortic bruit present, Soft to palpation, nontender, No hepatosplenomegaly present and No Rebound tenderness present Auscultation: normal bowel sounds General: Yes no CVA tenderness Back/Spine/Pelvis Back: no CVA tenderness Cervical Spine: cervical ROM normal and No Cervical spine tenderness Thoracic/Lumbar Spine: thoraco-lumbar ROM normal, No pain with thoraco-lumbar ROM, No thoracic spinal tenderness and No lumbar spinal tenderness Skin Lesions: no lesions Rashes: no rashes Trauma: no lacerations or abrasions Wounds: no wounds Nails: normal Neuro General: patient oriented x3 Cranial nerves: Yes Equal, round and reactive pupils present Cognition (Neuro): normal cognition Gait exam (Neuro): Normal gait present Motor exam (neuro): 5/5 motor strength present throughout Sensory Exam: No Sensory deficit (Neuro) Deep tendon reflexes (DTR's): Right patellar reflex intensity grade: 2+ and Left patellar reflex intensity grade: 2+ Extrem General: Yes normal to inspection and No edema Psych Appearance: grossly normal Affect: normal affect Attitude: cooperative Thought process: Normal thought process present Coding Level of Care Code Est Pt Level 3 (70090) Est Pt Prev Care 40-64y(06500) Diagnoses Adult general medical exam Z00.00 Vision changes H53.9 Screening for colon cancer Z12.11 Anxiety with depression F41.8 Screening for prostate cancer Z12.5 Low HDL (under 40) E78.6 Additional Codes ABHILASH-7 Assessment Billing - ABHILASH-7 Assessment Tool: ABHILASH-7 Assessment 39670 ([id number]) PHQ-9 - 38197 - PHQ-9 Billing: Yes ([id number]) Assessment & Plan Assessment & Plan (1) Adult general medical exam: Code(s): Z00.00 - Encounter for general adult medical examination without abnormal findings Category: Medical Plan: 54-year-old?male?presents?for?complete?physical?exam Encouraged?healthy?diet?with?active?lifestyle?and?plenty?of?exercise (2) Vision changes: Code(s): H53.9 - Unspecified visual disturbance Category: Medical Plan: Patient?notes?a?right?visual?field?defect?for?the?past?3?weeks. This?does?not?seem?to?be?worsening?or?improving Will?refer?him?to?Ophthalmology?urgently. Advised?him?to?go?to?ED?if?he?notices?any?further?changes (3) Screening for colon cancer: Code(s): Z12.11 - Encounter for screening for malignant neoplasm of colon Category: Medical Plan: Last?colonoscopy?was?2021?at?[facility] [place]. Recommended?follow-up?in?2026 (4) Anxiety with depression: Code(s): F41.8 - Other specified anxiety disorders Category: Medical Plan: Starts?citalopram?10?mg?daily?then?titrate?up 20?mg?daily Referred?for?therapist (5) Screening for prostate cancer: Code(s): Z12.5 - Encounter for screening for malignant neoplasm of prostate Category: Medical Plan: PSA?is?within?normal?range Will?continue?in?screening (6) Low HDL (under 40): Code(s): E78.6 - Lipoprotein deficiency Category: Medical Plan: Still?has?low?HDL Increase?exercise [place] 3?fatty?acids?in?diet Orders: Referrals Ophthalmology Referral H53.40 - Unspecified visual field defects, H53.9 - Unspecified visual disturbance Nurse Navigator Referral F41.9 - Anxiety disorder, unspecified, R45.4 - Irritability and anger Medications: New citalopram 20 mg PO DAILY 30 days 30 tabs 3RF
[2025-01-10 16:03] VITALS: BP 112/60; PULSE 86; RESP 12; TEMP 36.7; O2SAT 98; BMI 34.0
== END 2025-01-10 16:29 | disposition home or self-care (01) ==
LOC: HO.HMCFM 15:53
PROVIDERS: PCP Family Medicine; Visit Provider Family Medicine
DX: Z00.00 Encounter for general adult medical examination without abnormal findings (principal); H53.9 Unspecified visual disturbance; Z12.11 Encounter for screening for malignant neoplasm of colon; F41.8 Other specified anxiety disorders; Z12.5 Encounter for screening for malignant neoplasm of prostate; E78.6 Lipoprotein deficiency

== ENCOUNTER → 2025-01-10 15:52 | Outpatient (BNVA) | payer BC, SELFPAY | PROVIDERS: PCP Family Medicine; Visit Provider Family Medicine | DX: Z00.00 Encounter for general adult medical examination without abnormal findings (principal); H53.9 Unspecified visual disturbance; F41.8 Other specified anxiety disorders; E78.6 Lipoprotein deficiency; R45.4 Irritability and anger | CPT/HCPCS: 96127 ==

== ENCOUNTER 2025-02-25 16:24 | Outpatient (AMB) | payer BC, SELFPAY ==
--- NOTE | 2025-02-25 16:58 | A.OFFPC_ITS ---
Vital Signs 02/25/25 16:59 Height 6 ft Weight 245 lb BMI 33.2 BP 120/84 Blood Pressure Location Rt brachial Position Sitting Respiration 12 Pulse 73 Pulse Source Pulse Oximeter Temp 98.1 F Temp Source Oral Pulse Oximetry (%) 95 Oxygen Delivery Method Room Air Intake Visit Reasons: f/u anxiety/depression Allergies No Known Allergies Allergy (Verified 01/10/25 16:02) Tobacco use date assessed: 01/10/25 Dental Screening Dental Screen Date: 01/10/25 HPI f/u anxiety/depression HPI Details 54 y/o male presents to f/u anxiety/eduard r reaction. Referred him to Ophthalmology urgently for a central visual field defect. Started him on citalopram for mood disorder. Citalopram has not been doing much. He reports ongoing anger issues. Had seen Fox Herrera 01/21/25 for the central visual field defect. He had noted pt has an epiretinal membrane involving R macula. They had arranged consultation at [facility]. HPI Comments History of Present Illness Details Documentation assistance for Farzad Lorenzana MD, was provided by Marshal Easley, Master Automotive Technician on 02/25/2025 at 5:03 PM EST. I, Dr. Lorenzana, have read, observed, and verified documentation. 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 1. Little interest or pleasure in doing things: not at all 2. Feeling down, depressed, or hopeless: not at all 3. Trouble falling or staying asleep, or sleeping too much: not at all 4. Feeling tired or having little energy: not at all 5. Poor appetite or overeating: not at all 6. Feeling bad about yourself - or that you are a failure or have let yourself or your family down: not at all 7. Trouble concentrating on things, such as reading the newspaper or watching television: not at all 8. Moving or speaking so slowly that other people could have noticed. Or the opposite - being so fidgety or restless that you have been moving around a lot more than usual: not at all 9. Thoughts that you would be better off or of hurting yourself in some way: not at all Total score: 0 Depression Screening Interpretation: Positive Depression Screening Done: Yes 89792 - PHQ-9 Billing: Yes Source: Developed by Drs. Juan Patrick, Patti Montoya, Moo Escamilla and colleagues, with an educational jason from [employer]. Thrive Questionnaire Date Thrive assessed: 01/10/25 I am a: Patient What is your living situation today?: I have a steady place to live Within the past 12 months, did the food you bought not last and you didn't have the money to get more?: Never true Within the past 12 months, did you worry whether your food would run out before you got money to buy more?: Never true Do you have trouble paying for medicines?: No Do you have trouble getting transportation to medical appointments?: No Do you have trouble paying your heating and electricity bill?: No Do you have trouble taking care of your child, family member or friend?: No Do you have trouble with day-to-day activities such as bathing, preparing meals, shopping, managing finances, etc.?: No Are you currently unemployed and looking for a job?: No Are you interested in more education?: No Please select the resources that you would like help with: None Currently or been in a relationship where the following occur: No concerns reported THRIVE Score: 0 AUDIT C Alcohol Use Questionnaire (AUDIT-C) 1. How often do you have a drink containing alcohol?: 2-4 times a month 2. How many drinks containing alcohol do you have on a typical day when you are drinking?: 1 or 2 3. How often do you have six or more drinks on one occasion?: Never Total Score: 2 ABHILASH-7 AMB Questionnaire ABHILASH-7 Date ABHILASH - 7 assessed: 02/25/25 Feeling nervous, anxious, or on edge: 0 = Not at all Not being able to stop or control worryin = Not at all Worrying too much about different things: 0 = Not at all Trouble relaxin = Not at all Being so restless that it is hard to sit still: 0 = Not at all Becoming easily annoyed or irritable: 3 = Nearly every day Feeling afraid as if something awful might happen: 0 = Not at all Total ABHILASH-7 score (0-4 normal; 5-9 mild; 10-14 moderate; 15-21 severe): 3 Source: Developed by Drs. Juan Patrick, Patti Montoya, Moo Escamilla and colleagues, with an educational jason from [employer]. ABHILASH-7 Assessment Billing ABHILASH-7 Assessment Tool: ABHILASH-7 Assessment 01979 Review of Systems Const Denies chills, Denies fatigue, Denies fever(s), Denies headache(s) and Denies weakness ENT Denies dizziness and Denies headache(s) Card Denies dyspnea Resp Denies cough, Denies dyspnea, Denies wheezing and Denies other (shortness of breath) Musc Denies numbness and Denies tingling Neuro Denies dizziness, Denies headache(s), Denies numbness, Denies tingling and Denies weakness Psych Denies anxiety and Denies depression Endo Denies fatigue Aller/Immun Denies wheezing Physical exam (Primary Care) Vital Signs: Last Vital Signs Temp 98.1 F 02/25/25 16:59 Pulse 73 02/25/25 16:59 Resp 12 02/25/25 16:59 BP 120/84 02/25/25 16:59 Pulse Ox 95 02/25/25 16:59 Oxygen Delivery Method Room Air 02/25/25 16:59 BMI result Body Mass Index 33.2 Tobacco/Smoking Status: Tobacco use Status Tobacco use date assessed 01/10/25 01/10/25 16:06 Patient Tobacco Use Status Never used Tobacco 01/10/25 15:55 e-Cigarette/Vaping Use Never Used 01/10/25 15:55 Depression Screening Interpretation: Positive Thrive Assessment: Date of Thrive Assessment Date Thrive assessed 01/10/25 01/10/25 15:55 Currently or been in a relationship where the following occur: No concerns reported Const General: well developed; No acute distress Nutritional Appearance: well nourished Orientation/consciousness: patient oriented x3 HENMT Head: Yes normocephalic and Yes atraumatic Eyes General: appearance normal, both eyes and all related structures Pupils: Equal, round and reactive pupils present EOM: EOMs intact bilaterally Resp Effort & Inspection: normal respiratory effort Neuro General: patient oriented x3 and gait normal Cranial nerves: Yes Equal, round and reactive pupils present Psych Affect: normal affect Coding Level of Care Code Est Pt Level 4 (70772) Diagnoses Visual field defect of right eye H53.40 Epiretinal membrane H35.379 Anger reaction R45.4 Additional Codes ABHILASH-7 Assessment Billing - ABHILASH-7 Assessment Tool: ABHILASH-7 Assessment 41885 ([id number]) PHQ-9 - 40345 - PHQ-9 Billing: Yes ([id number]) Assessment & Plan Assessment & Plan (1) Visual field defect of right eye: Code(s): H53.40 - Unspecified visual field defects Category: Medical (2) Epiretinal membrane: Code(s): H35.379 - Puckering of macula, unspecified eye Category: Medical (3) Anger reaction: Code(s): R45.4 - Irritability and anger Category: Medical Plan: Will?have?him?continue?citalopram Will?give?him?a?script?for?clonazepam?prn Advised?he?should?not?operate?machinery?or drive?a?car?until?he?knows?how?this?affects?him Call?therapist?to?set?up?appointments. Will?follow-up?in?a?month Plan Patient?saw?Ophthalmology?and?he?was?diagnosed?with?an?epiretinal?membrane Has?been?referred?to?an?eye?surgeon Medications: New clonazepam #10 tabs per 30 days. 0.5 mg PO DAILY 30 days PRN 10 tabs 0RF Anger reaction
[2025-02-25 16:59] VITALS: BP 120/84; PULSE 73; RESP 12; TEMP 36.7; O2SAT 95; BMI 33.2
== END 2025-02-25 17:01 | disposition home or self-care (01) ==
LOC: HO.HMCFM 16:25
PROVIDERS: PCP Family Medicine; Visit Provider Family Medicine
DX: H53.40 Unspecified visual field defects (principal); H35.379 Puckering of macula, unspecified eye; R45.4 Irritability and anger

== ENCOUNTER → 2025-02-25 16:24 | Outpatient (BNVA) | payer BC, SELFPAY | PROVIDERS: PCP Family Medicine; Visit Provider Family Medicine | DX: R45.4 Irritability and anger (principal); F41.9 Anxiety disorder, unspecified; H53.40 Unspecified visual field defects; H35.379 Puckering of macula, unspecified eye; F32.A Depression, unspecified | CPT/HCPCS: 96127 ==

== ENCOUNTER 2025-04-14 16:07 | Outpatient (AMB) | payer BC, SELFPAY ==
--- NOTE | 2025-04-14 16:10 | A.OFFPC_ITS ---
Vital Signs 04/14/25 16:14 Height 6 ft Weight 249 lb 4 oz BMI 33.8 BP 110/71 Blood Pressure Location Rt brachial Position Sitting Respiration 16 Pulse 97 Pulse Source Pulse Oximeter Temp 97.9 F Temp Source Oral Pulse Oximetry (%) 97 Oxygen Delivery Method Room Air Intake Visit Reasons: f/u medication Intake Note: patient here for follow up on Medication Coordinator Of Online Programs Required: No Allergies No Known Allergies Allergy (Verified 04/14/25 16:13) Medication List - Last Reconciled 04/14/25 by Farzad Lorenzana MD citalopram 20 mg PO DAILY 30 days clonazepam 0.5 mg PO DAILY PRN 30 days omeprazole 40 mg PO DAILY 90 days Tobacco use date assessed: 04/14/25 Dental Screening Dental Screen Date: 04/14/25 Did you have a dental visit in the last 12 months?: Yes Did you have a dental problem in the last 6 months where you did not have access to dental care?: No Was dental information given to patient?: Patient has dentist HPI f/u medication HPI Details 54 y/o male presents to f/u anger reacti on. Continued his citalopram and gave him a script for prn clonazepam. Pt notes citalopram seems to be working fine. He does note anxiety seems to be worse during the winter. He has not trialed clonazepam yet. HPI Comments History of Present Illness Details Documentation assistance for Farzad Lorenzana MD, was provided by Marshal Easley,? Crm Administrator on 04/14/2025 at 4:34 PM EST. I, Dr. Lorenzana, have read, observed, and verified documentation. ?? 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 Current occupational exposures/hazards: No Cognitive needs: No Hearing needs: No Vision needs: No (reading glasses) Questionnaire Thrive Questionnaire Date Thrive assessed: 01/10/25 I am a: Patient What is your living situation today?: I have a steady place to live Within the past 12 months, did the food you bought not last and you didn't have the money to get more?: Never true Within the past 12 months, did you worry whether your food would run out before you got money to buy more?: Never true Do you have trouble paying for medicines?: No Do you have trouble getting transportation to medical appointments?: No Do you have trouble paying your heating and electricity bill?: No Do you have trouble taking care of your child, family member or friend?: No Do you have trouble with day-to-day activities such as bathing, preparing meals, shopping, managing finances, etc.?: No Are you currently unemployed and looking for a job?: No Are you interested in more education?: No Please select the resources that you would like help with: None Currently or been in a relationship where the following occur: No concerns reported THRIVE Score: 0 ABHILASH-7 AMB Questionnaire ABHILASH-7 Date ABHILASH - 7 assessed: 02/25/25 Source: Developed by Drs. Juan Patrick, Patti Montoya, Moo Escamilla and colleagues, with an educational jason from [employer]. Review of Systems Const Denies chills, Denies fatigue, Denies fever(s), Denies headache(s) and Denies weakness ENT Denies dizziness and Denies headache(s) Card Denies dyspnea Resp Denies cough, Denies dyspnea, Denies wheezing and Denies other (shortness of breath) Musc Denies numbness and Denies tingling Neuro Denies dizziness, Denies headache(s), Denies numbness, Denies tingling and Denies weakness Psych Denies anxiety and Denies depression Endo Denies fatigue Aller/Immun Denies wheezing Physical exam (Primary Care) Vital Signs: Last Vital Signs Temp 97.9 F 04/14/25 16:14 Pulse 97 04/14/25 16:14 Resp 16 04/14/25 16:14 BP 110/71 04/14/25 16:14 Pulse Ox 97 04/14/25 16:14 Oxygen Delivery Method Room Air 04/14/25 16:14 BMI result Body Mass Index 33.8 Tobacco/Smoking Status: Tobacco use Status Tobacco use date assessed 04/14/25 04/14/25 16:18 Patient Tobacco Use Status Never used Tobacco 04/14/25 16:13 e-Cigarette/Vaping Use Never Used 04/14/25 16:13 Thrive Assessment: Date of Thrive Assessment Date Thrive assessed 01/10/25 04/14/25 16:13 Currently or been in a relationship where the following occur: No concerns reported Const General: well developed; No acute distress Nutritional Appearance: well nourished Orientation/consciousness: patient oriented x3 HENMT Head: Yes normocephalic and Yes atraumatic Eyes General: appearance normal, both eyes and all related structures Pupils: Equal, round and reactive pupils present EOM: EOMs intact bilaterally Resp Effort & Inspection: normal respiratory effort Auscultation: clear to auscultation bilaterally Cardio Rate: regular rate Rhythm: regular rhythm Heart sounds: S1 normal heart sound present, S2 normal heart sound present, no gallops, no murmurs and no rubs Neuro General: patient oriented x3 and gait normal Cranial nerves: Yes Equal, round and reactive pupils present Psych Affect: normal affect Coding Level of Care Code Est Pt Level 3 (44286) Diagnoses Anger reaction R45.4 Anxiety F41.9 Assessment & Plan Assessment & Plan (1) Anger reaction: Code(s): R45.4 - Irritability and anger Category: Medical (2) Anxiety: Code(s): F41.9 - Anxiety disorder, unspecified Category: Medical Plan Patient currently feels steady on citalopram. He has not tried clonazepam yet. He does note that most of his symptoms are in wintertime darker months. Continue citalopram In try clonazepam and if this is helping use sparingly. He can call for refill we discussed that I would want to follow-up with him prior to refills of this medication as has not tried a yet. He has his annual physical scheduled next year. Orders: Orders Complete Blood Count Auto Diff Today Z00.00 - Encounter for general adult medical examination without abnormal findings Microalbumin, Random (w Creat) Today I10 - Essential (primary) hypertension UA CC w/rflx Micro + Cult Today Z00.00 - Encounter for general adult medical examination without abnormal findings Comprehensive [place]. Panel Fast Today Z00.00 - Encounter for general adult medical examination without abnormal findings Lipid Panel Today Z00.00 - Encounter for general adult medical examination without abnormal findings Prostate Specific Antigen Scr Today Z12.5 - Encounter for screening for malignant neoplasm of prostate TSH reflex Free T4 Today Z00.00 - Encounter for general adult medical examination without abnormal findings Medications: On Hold clonazepam Hold Comment: Doctor's Order 0.5 mg PO DAILY PRN 10 tabs 0RF Anger reaction 30 days
[2025-04-14 16:14] VITALS: BP 110/71; PULSE 97; RESP 16; TEMP 36.6; O2SAT 97; BMI 33.8
== END 2025-04-14 16:36 | disposition home or self-care (01) ==
LOC: HO.HMCFM 16:08
PROVIDERS: PCP Family Medicine; Visit Provider Family Medicine
DX: R45.4 Irritability and anger (principal); F41.9 Anxiety disorder, unspecified